=== PATIENT | female | born 1985 | race Caucasian/White ===

== ENCOUNTER 2016-09-21 20:24 | Emergency (ER) | payer OTHER ==
[2016-09-21 20:29] VITALS: RESP 20
[2016-09-21] MEDS ORDERED: ONDANSETRON 4 MG/2 ML VIAL IVP STA (20:58)
[2016-09-21] MEDS: SODIUM CHLORIDE 0.9% 1,000 ML IV STA ×2 (21:17→21:24)
[2016-09-21 21:19] VITALS: PULSE 88
[2016-09-21 21:27] LABS: Basophils % (A) 0 %; CH 25.5; CHCM 31.5; Eosinophils # (A) 0.7 k/uL (0-0.7); Eosinophils % (A) 7 %; HCT 41.1 % (34.0-46.0); HDW 2.47; HGB 12.2 gm/dL (11.4-16.0); Luc # (Auto) 0.11; Luc % (Auto) 1; Lymphocytes # (A) 1.7 k/uL (1.0-4.8); Lymphocytes % (A) 18 %; MCH 24.2 pg (25.0-35.0); MCHC 29.7 g/dL (31.0-37.0); MCV 81.3 fL (80.0-100.0); Mean Platelet Volume 7.1; Monocytes # (A) 0.4 k/uL (0-1.0); Monocytes % (A) 5 %; Neutrophils # (A) 6.5 k/uL (1.3-7.7); Neutrophils % (A) 68 %; RBC 5.05 m/uL (3.80-5.40); RDW 15.9 % (11.5-15.5); WBC 9.5 k/uL (3.8-10.6); WBC (Perox) 9.55
--- NOTE | 2016-09-21 21:30 | ED ---
Nausea/Vomiting/Diarrhea HPI - General Chief complaint: Nausea/Vomiting/Diarrhea Stated complaint: NVD Time Seen by Provider: 09/21/16 20:35 Source: patient, family, RN notes reviewed Mode of arrival: ambulatory Limitations: no limitations - History of Present Illness Initial comments: Patient is 31-year-old female presenting to the emergency department with chief complaint of 4 days of diarrhea and 1 day vomiting, also reports that she's had abdominal pain is gotten increasingly worse. Patient presents that she's felt dizzy and lightheaded due to the amount of vomiting and diarrhea she's had. She states that it radiates on her right upper quadrant. She reports that she' s had multiple episodes of vomiting today. She also reports that she's been having a cough for the past 3-4 weeks and states that the productive with green sputum. She reports that she is a smoker and has not been able to smoke her usual amount due to the cough. She has reports she's felt feverish and chilled. Patient denies any recent nausea vomiting, numbness or tingling, dysuria or hematuria, constipation or , headaches or visual changes, or any other current symptoms. - Related Data Home Medications Medication Instructions Recorded Confirmed Baclofen [Lioresal] 30 mg PO 5XD 02/04/16 09/21/16 DULoxetine HCL [Cymbalta] 30 mg PO HS 02/04/16 09/21/16 Diazepam [Valium] 5 mg PO QAM 02/04/16 09/21/16 DULoxetine HCL [Cymbalta] 60 mg PO QAM 07/17/16 09/21/16 Diazepam [Valium] 2.5 mg PO HS 07/17/16 09/21/16 Ibuprofen [Motrin] 800 mg PO TID PRN 07/17/16 09/21/16 Polyethylene Glycol 3350 [Miralax] 17 gm PO BID 07/17/16 09/21/16 Tamsulosin HCl [Flomax] 0.4 mg PO DAILY 07/17/16 09/21/16 Previous Rx's Medication Instructions Recorded Ciprofloxacin HCl [Cipro] 500 mg PO Q12HR #14 tablet 07/18/16 Ciprofloxacin HCl [Cipro] 500 mg PO Q12HR #9 tablet 09/21/16 Ondansetron [Zofran] 4 mg PO Q8HR PRN #12 tab 09/21/16 methylPREDNISolone [Medrol Dose 4 mg PO DIRECTED #1 pack 09/21/16 Pack] Allergies Allergy/AdvReac Type Severity Reaction Status Date / Time No Known Allergies Allergy Verified 09/21/16 20:29 Review of Systems ROS Statement: Those systems with pertinent positive or pertinent negative responses have been documented in the HPI. ROS Other: All systems not noted in ROS Statement are negative. Past Medical History Additional Past Medical History / Comment(s): scoliosis, back pain. MS History of Any Multi-Drug Resistant Organisms: None Reported Past Surgical History: No Surgical Hx Reported Additional Past Surgical History / Comment(s): Ruptured fallopian tube - repair Past Psychological History: Anxiety, Depression Smoking Status: Current every day smoker Past Alcohol Use History: None Reported Past Drug Use History: None Reported General Exam - General Exam Comments Initial Comments: Patient is a well-appearing 31-year-old female. She does not appear in any acute distress. Limitations: no limitations General appearance: alert, in no apparent distress Head exam: Present: atraumatic, normocephalic, normal inspection Eye exam: Present: normal appearance, PERRL, EOMI. Absent: scleral icterus, conjunctival injection, periorbital swelling ENT exam: Present: normal exam, normal oropharynx, mucous membranes moist Neck exam: Present: normal inspection. Absent: tenderness, meningismus, lymphadenopathy Respiratory exam: Present: normal lung sounds bilaterally, other (Mild bilateral wheezes). Absent: respiratory distress, wheezes, rales, rhonchi, stridor Cardiovascular Exam: Present: regular rate, normal rhythm, normal heart sounds. Absent: systolic murmur, diastolic murmur, rubs, gallop, clicks GI/Abdominal exam: Present: soft, normal bowel sounds. Absent: distended, tenderness, guarding, rebound, rigid Extremities exam: Present: normal inspection, full ROM, normal capillary refill. Absent: tenderness, pedal edema, joint swelling, calf tenderness Back exam: Present: normal inspection Neurological exam: Present: alert, oriented X3, CN II-XII intact Psychiatric exam: Present: normal affect, normal mood Skin exam: Present: warm, dry, intact, normal color. Absent: rash Course Vital Signs 09/21/16 09/21/16 09/21/16 20:27 21:18 23:50 Temperature 99 F 98.1 F 98.2 F Pulse Rate 97 88 88 Respiratory 20 20 20 Rate Blood Pressure 117/68 128/72 O2 Sat by Pulse 99 98 Oximetry - Reevaluation(s) Reevaluation #1: Patient was reevaluated and is resting comfortably in bed. She denies any abdominal pain at this time. Medical Decision Making - Medical Decision Making Patient is a 31-year-old female presenting with chief complaint of 4 days of diarrhea and feeling lightheaded as well as 1 day of vomiting. Patient also reports that she's had a chronic cough for the past 2 weeks. Patient's chest x- ray and KUB x-ray reviewed and show no evidence of any acute process. Patient' s lab work is all reviewed to be normal besides a fecal occult being positive. Patient does have significant watery diarrhea. C. diff was negative. She denies any recent antibiotic use. Given the occult positive and significant diarrhea patient be started on ciprofloxacin for the next 3 days. Patient will also be started on a short course of steroids due to this chronic cough. She is a smoker and states that she has no plans on quitting. Patient also will be discharged with some nausea medication. Patient understands treatment plan and will comply. Return parameters were discussed. I advised patient to remain extremely hydrated. Patient was given a note for work for the next 2 days. - Lab Data Result diagrams: 09/21/16 21:20 09/21/16 21:20 Lab Results 09/21/16 09/21/16 09/21/16 Range/Units 21:20 21:20 21:30 WBC 9.5 (3.8-10.6) k/uL RBC 5.05 (3.80-5.40) m/uL Hgb 12.2 (11.4-16.0) gm/dL Hct 41.1 (34.0-46.0) % MCV 81.3 (80.0-100.0) fL MCH 24.2 L (25.0-35.0) pg MCHC 29.7 L (31.0-37.0) g/dL RDW 15.9 H (11.5-15.5) % Plt Count 433 (150-450) k/uL Neutrophils % 68 % Lymphocytes % 18 % Monocytes % 5 % Eosinophils % 7 % Basophils % 0 % Neutrophils # 6.5 (1.3-7.7) k/uL Lymphocytes # 1.7 (1.0-4.8) k/uL Monocytes # 0.4 (0-1.0) k/uL Eosinophils # 0.7 (0-0.7) k/uL Basophils # 0.0 (0-0.2) k/uL Sodium 143 (137-145) mmol/L Potassium 3.6 (3.5-5.1) mmol/L Chloride 108 H (98-107) mmol/L Carbon Dioxide 24 (22-30) mmol/L Anion Gap 11 mmol/L BUN 9 (7-17) mg/dL Creatinine 0.90 (0.52-1.04) mg/dL Est GFR (MDRD) Af Amer >60 (>60 ml/min/1.73 sqM) Est GFR (MDRD) Non-Af >60 (>60 ml/min/1.73 sqM) Glucose 89 (74-99) mg/dL Calcium 9.1 (8.4-10.2) mg/dL Total Bilirubin 0.5 (0.2-1.3) mg/dL AST 16 (14-36) U/L ALT 27 (9-52) U/L Alkaline Phosphatase 85 (38-126) U/L Total Protein 6.9 (6.3-8.2) g/dL Albumin 4.2 (3.5-5.0) g/dL Amylase <30 L (30-110) U/L Lipase 33 (23-300) U/L Urine Color Urine Appearance (Clear) Urine pH (5.0-8.0) Ur Specific [place] (1.001-1.035) Urine Protein (Negative) Urine Glucose (UA) (Negative) Urine Ketones (Negative) Urine Blood (Negative) Urine Nitrate (Negative) Urine Bilirubin (Negative) Urine Urobilinogen (<2.0) mg/dL Ur Leukocyte Esterase (Negative) Urine RBC (0-5) /hpf Urine WBC (0-5) /hpf Ur Squamous Epith Cells (0-4) /hpf Urine Mucus (None) /hpf Urine HCG, Qual (Not Detectd) Stool Occult Blood Positive H (Negative) C. difficile (EIA) Intrp (Negative) 09/21/16 09/21/16 09/21/16 Range/Units 21:30 22:20 22:20 WBC (3.8-10.6) k/uL RBC (3.80-5.40) m/uL Hgb (11.4-16.0) gm/dL Hct (34.0-46.0) % MCV (80.0-100.0) fL MCH (25.0-35.0) pg MCHC (31.0-37.0) g/dL RDW (11.5-15.5) % Plt Count (150-450) k/uL Neutrophils % % Lymphocytes % % Monocytes % % Eosinophils % % Basophils % % Neutrophils # (1.3-7.7) k/uL Lymphocytes # (1.0-4.8) k/uL Monocytes # (0-1.0) k/uL Eosinophils # (0-0.7) k/uL Basophils # (0-0.2) k/uL Sodium (137-145) mmol/L Potassium (3.5-5.1) mmol/L Chloride (98-107) mmol/L Carbon Dioxide (22-30) mmol/L Anion Gap mmol/L BUN (7-17) mg/dL Creatinine (0.52-1.04) mg/dL Est GFR (MDRD) Af Amer (>60 ml/min/1.73 sqM) Est GFR (MDRD) Non-Af (>60 ml/min/1.73 sqM) Glucose (74-99) mg/dL Calcium (8.4-10.2) mg/dL Total Bilirubin (0.2-1.3) mg/dL AST (14-36) U/L ALT (9-52) U/L Alkaline Phosphatase (38-126) U/L Total Protein (6.3-8.2) g/dL Albumin (3.5-5.0) g/dL Amylase (30-110) U/L Lipase (23-300) U/L Urine Color Light Yellow Urine Appearance Clear (Clear) Urine pH 6.0 (5.0-8.0) Ur Specific [place] 1.002 (1.001-1.035) Urine Protein Negative (Negative) Urine Glucose (UA) Negative (Negative) Urine Ketones Negative (Negative) Urine Blood Moderate H (Negative) Urine Nitrate Negative (Negative) Urine Bilirubin Negative (Negative) Urine Urobilinogen <2.0 (<2.0) mg/dL Ur Leukocyte Esterase Negative (Negative) Urine RBC 33 H (0-5) /hpf Urine WBC 1 (0-5) /hpf Ur Squamous Epith Cells 4 (0-4) /hpf Urine Mucus Rare H (None) /hpf Urine HCG, Qual Not Detected (Not Detectd) Stool Occult Blood (Negative) C. difficile (EIA) Intrp Negative (Negative) - Radiology Data Patient's chest x-ray shows mild atelectasis in the right lung base. There is no focal pneumonias. KUB x-ray shows overall non-instructed bowel gas pattern. Was read by Dr. Scot mccallum. Disposition Clinical Impression: Diarrhea, Nausea & vomiting, Cough Disposition: HOME SELF-CARE Condition: Good Instructions: Acute Nausea and Vomiting (ED), Acute Diarrhea (ED) Additional Instructions: Patient instructed to take nausea medication and complete antibiotic prescription and follow-up with primary care provider within the next 2-3 days if symptoms continue to persist. Return to the [facility] if any alarming signs or symptoms occur. Prescriptions: Ciprofloxacin HCl [Cipro] 500 mg PO Q12HR #9 tablet Ondansetron [Zofran] 4 mg PO Q8HR PRN #12 tab PRN Reason: Nausea And Vomiting methylPREDNISolone [Medrol Dose Pack] 4 mg PO DIRECTED #1 pack Referrals: Heather Oh MD [Primary Care Provider] - 1-2 days Time of Disposition: 23:38
[2016-09-21 21:35] LABS: ALT 27 U/L (9-52); AST 16 U/L (14-36); Alkaline Phosphatase 85 U/L (38-126); Amylase <30 U/L (30-110); Anion Gap 11 mmol/L; Blood Urea Nitrogen 9 mg/dL (7-17); Calcium 9.1 mg/dL (8.4-10.2); Carbon Dioxide 24 mmol/L (22-30); Chloride 108 mmol/L (98-107); Glucose 89 mg/dL (74-99); Non-African American GFR(MDRD) >60 (>60 ml/min/1.73 sqM); Potassium 3.6 mmol/L (3.5-5.1); Sodium 143 mmol/L (137-145); Total Bilirubin 0.5 mg/dL (0.2-1.3); Total Protein 6.9 g/dL (6.3-8.2)
[2016-09-21] MEDS ORDERED: METOCLOPRAMIDE 5 MG/ML 2 ML VIAL IVP STA (21:46)
[2016-09-21] MEDS ORDERED: diphenhydrAMINE 50 MG/ML 1 ML VIAL IVP STA (21:47)
[2016-09-21 22:29] LABS: Appearance,Urine Clear (Clear); Bilirubin,Urine Negative (Negative); Glucose,Urine (UA) Negative (Negative); Ketones,Urine Negative (Negative); Leukocyte Esterase,Urine Negative (Negative); Mucus,Urine Rare /hpf; Nitrite,Urine Negative (Negative); Particle Count 2283; Protein,Urine Negative (Negative); RBC,Urine 33 /hpf (0-5); Specific Gravity,Urine 1.002 (1.001-1.035); Squamous Epithelial Cell,Urine 4 /hpf (0-4); UA Billing (MACRO vs. MICRO) MICRO; Urobilinogen,Urine <2.0 mg/dL (<2.0); WBC,Urine 1 /hpf (0-5)
--- NOTE | 2016-09-21 22:48 | XR ---
EXAMINATION TYPE: XR chest 2V DATE OF EXAM: 09/21/2016 10:41 PM COMPARISON: NONE HISTORY: Nausea vomiting and diarrhea. Weakness blood in the stool fever and cough TECHNIQUE: Frontal and lateral views of the chest are obtained. FINDINGS: Mild atelectatic changes are suggested in the right lung base. There is no focal pneumonia, pleural effusion, or pneumothorax seen. The cardiac silhouette size is within normal limits. The osseous structures are intact. IMPRESSION: 1. Mild atelectasis in the right lung base. 2. No focal pneumonia.
--- NOTE | 2016-09-21 22:50 | XR ---
EXAMINATION TYPE: XR KUB DATE OF EXAM: 09/21/2016 10:42 PM CLINICAL HISTORY: Weakness and blood in the distal TECHNIQUE: 2 frontal upright radiographs of abdomen were obtained. COMPARISON: 07/17/2016 FINDINGS: Scattered gas is seen in non-distended small bowel loops. Gas and fecal material is seen in non-distended colon. There is no visceromegaly, pneumoperitoneum, or abnormal calcification appr eciated. The lung bases are clear and the osseous structures are intact. IMPRESSION: Overall nonobstructive bowel gas pattern. No significant interval change.
[2016-09-21 23:52] VITALS: BP 128/72; TEMP 98.2
== END 2016-09-21 23:50 | disposition home or self-care (01) ==
LOC: EC 20:24
DX: R19.7 Diarrhea, unspecified (principal); R11.2 Nausea with vomiting, unspecified; R10.11 Right upper quadrant pain; R42 Dizziness and giddiness; J98.11 Atelectasis; G35 Multiple sclerosis; F41.9 Anxiety disorder, unspecified; F32.9 Major depressive disorder, single episode, unspecified; F17.200 Nicotine dependence, unspecified, uncomplicated; Z79.1 Long term (current) use of non-steroidal anti-inflammatories (NSAID); Z79.899 Other long term (current) drug therapy
CPT/HCPCS: 99284 ×2; 96374 ×2; 96375 ×4; 36415; 80053; 82150; 83690; 85025; 82272; 81001; 81025; 87045; 89055; 87046; 80299; 71020; 74000; J1200; J2765; J2405; 87324

== ENCOUNTER 2016-10-24 11:57 | Inpatient (IN) | payer OTHER ==
[2016-10-24] MEDS ORDERED: SODIUM CHLORIDE 0.9% 1,000 ML IV STA ×2 (13:45)
[2016-10-24] MEDS ORDERED: RX INFO: IV CONTRAST WAS GIVEN 1 EACH MISC MISCELLANE PRN (13:45)
[2016-10-24] MEDS ORDERED: HYDROmorphone 1 MG/ML 1 ML SYRINGE IVP STA ×2 (13:45→15:16)
[2016-10-24] MEDS ORDERED: PANTOPRAZOLE 40 MG/10 ML VIAL IVP STA (13:45)
[2016-10-24] MEDS ORDERED: ONDANSETRON 4 MG/2 ML VIAL IVP STA (13:45)
--- NOTE | 2016-10-24 13:50 | ED ---
General Adult HPI - General Chief complaint: Abdominal Pain Stated complaint: Vomiting/[place]/Blood in stool Time Seen by Provider: 10/24/16 13:35 Source: patient, RN notes reviewed Mode of arrival: ambulatory Limitations: no limitations - History of Present Illness Initial comments: Patient is a pleasant 31-year-old female presenting to the emergency department complaining of nausea vomiting and diarrhea. Symptoms have been present for 1 month now. Patient has had some episodes of blood with emesis and diarrhea. Patient has at least one episode of each emesis and diarrhea daily, sometimes more. Patient has had more vomiting today. Patient does have abdominal discomfort which radiates from the umbilical region to the left lower abdomen. No history of chronic abdominal problems. Patient did see her primary care physician prior to arrival who recommended she come back to the emergency department. Patient has sweats at night. - Related Data Home Medications Medication Instructions Recorded Confirmed Baclofen [Lioresal] 30 mg PO 5XD 02/04/16 10/24/16 DULoxetine HCL [Cymbalta] 30 mg PO HS 02/04/16 10/24/16 Diazepam [Valium] 5 mg PO QAM 02/04/16 10/24/16 DULoxetine HCL [Cymbalta] 60 mg PO QAM 07/17/16 10/24/16 Diazepam [Valium] 2.5 mg PO HS 07/17/16 10/24/16 Ibuprofen [Motrin] 800 mg PO TID PRN 07/17/16 10/24/16 Previous Rx's Medication Instructions Recorded Ondansetron [Zofran] 4 mg PO Q8HR PRN #12 tab 09/21/16 Allergies Allergy/AdvReac Type Severity Reaction Status Date / Time No Known Allergies Allergy Verified 10/24/16 13:49 Review of Systems ROS Statement: Those systems with pertinent positive or pertinent negative responses have been documented in the HPI. ROS Other: All systems not noted in ROS Statement are negative. Constitutional: Reports: night sweats Eyes: Denies: eye pain ENT: Denies: ear pain Respiratory: Denies: cough, dyspnea Cardiovascular: Denies: chest pain Endocrine: Reports: fatigue Gastrointestinal: Reports: abdominal pain, nausea, vomiting, diarrhea, hematemesis, hematochezia Genitourinary: Denies: dysuria Musculoskeletal: Denies: back pain Skin: Denies: rash Neurological: Denies: headache Past Medical History Additional Past Medical History / Comment(s): scoliosis, back pain. MS History of Any Multi-Drug Resistant Organisms: None Reported Past Surgical History: No Surgical Hx Reported Additional Past Surgical History / Comment(s): Ruptured fallopian tube - repair Past Psychological History: Anxiety, Depression Smoking Status: Current every day smoker Past Alcohol Use History: None Reported Past Drug Use History: None Reported General Exam Limitations: no limitations General appearance: alert, in no apparent distress Head exam: Present: atraumatic Eye exam: Present: normal appearance, PERRL ENT exam: Present: normal oropharynx Neck exam: Present: normal inspection Respiratory exam: Present: normal lung sounds bilaterally Cardiovascular Exam: Present: regular rate, normal rhythm GI/Abdominal exam: Present: soft, tenderness (Mild tenderness right lower quadrant, moderate tenderness left lower quadrant), normal bowel sounds. Absent : distended, guarding, rebound, rigid, pulsatile mass Extremities exam: Present: normal inspection Neurological exam: Present: alert Psychiatric exam: Present: normal affect, normal mood Skin exam: Absent: rash Course Vital Signs 10/24/16 10/24/16 12:31 16:01 Temperature 98.2 F Pulse Rate 94 70 Respiratory 20 18 Rate Blood Pressure 125/73 112/56 O2 Sat by Pulse 99 97 Oximetry Medical Decision Making - Medical Decision Making Patient reevaluated and still complains of discomfort. Dr. Quezada has been paged for admission for Dr. trevino/Brad. - Lab Data Result diagrams: 10/24/16 14:05 10/24/16 14:05 Lab Results 10/24/16 10/24/16 10/24/16 Range/Units 14:05 14:05 14:05 WBC 14.1 H (3.8-10.6) k/uL RBC 5.03 (3.80-5.40) m/uL Hgb 12.8 (11.4-16.0) gm/dL Hct 41.7 (34.0-46.0) % MCV 82.9 (80.0-100.0) fL MCH 25.5 (25.0-35.0) pg MCHC 30.8 L (31.0-37.0) g/dL RDW 15.2 (11.5-15.5) % Plt Count 377 (150-450) k/uL Neutrophils % 81 % Lymphocytes % 13 % Monocytes % 4 % Eosinophils % 1 % Basophils % 0 % Neutrophils # 11.5 H (1.3-7.7) k/uL Lymphocytes # 1.8 (1.0-4.8) k/uL Monocytes # 0.5 (0-1.0) k/uL Eosinophils # 0.1 (0-0.7) k/uL Basophils # 0.0 (0-0.2) k/uL Hypochromasia Slight PT 12.3 H (9.0-12.0) sec INR 1.2 (<1.1) APTT 26.4 (22.0-30.0) sec Sodium 143 (137-145) mmol/L Potassium 4.0 (3.5-5.1) mmol/L Chloride 104 (98-107) mmol/L Carbon Dioxide 17 L (22-30) mmol/L Anion Gap 22 mmol/L BUN 10 (7-17) mg/dL Creatinine 0.91 (0.52-1.04) mg/dL Est GFR (MDRD) Af Amer >60 (>60 ml/min/1.73 sqM) Est GFR (MDRD) Non-Af >60 (>60 ml/min/1.73 sqM) Glucose 66 L (74-99) mg/dL Calcium 9.8 (8.4-10.2) mg/dL Total Bilirubin 1.2 (0.2-1.3) mg/dL AST 17 (14-36) U/L ALT 22 (9-52) U/L Alkaline Phosphatase 75 (38-126) U/L Total Protein 8.0 (6.3-8.2) g/dL Albumin 4.9 (3.5-5.0) g/dL Amylase <30 L (30-110) U/L Lipase 29 (23-300) U/L HCG, Qual Not Detected Urine Color Urine Appearance (Clear) Urine pH (5.0-8.0) Ur Specific [place] (1.001-1.035) Urine Protein (Negative) Urine Glucose (UA) (Negative) Urine Ketones (Negative) Urine Blood (Negative) Urine Nitrate (Negative) Urine Bilirubin (Negative) Urine Urobilinogen (<2.0) mg/dL Ur Leukocyte Esterase (Negative) Urine RBC (0-5) /hpf Urine WBC (0-5) /hpf Ur Squamous Epith Cells (0-4) /hpf Hyaline Casts (0-2) /lpf Urine Mucus (None) /hpf 10/24/16 Range/Units 15:56 WBC (3.8-10.6) k/uL RBC (3.80-5.40) m/uL Hgb (11.4-16.0) gm/dL Hct (34.0-46.0) % MCV (80.0-100.0) fL MCH (25.0-35.0) pg MCHC (31.0-37.0) g/dL RDW (11.5-15.5) % Plt Count (150-450) k/uL Neutrophils % % Lymphocytes % % Monocytes % % Eosinophils % % Basophils % % Neutrophils # (1.3-7.7) k/uL Lymphocytes # (1.0-4.8) k/uL Monocytes # (0-1.0) k/uL Eosinophils # (0-0.7) k/uL Basophils # (0-0.2) k/uL Hypochromasia PT (9.0-12.0) sec INR (<1.1) APTT (22.0-30.0) sec Sodium (137-145) mmol/L Potassium (3.5-5.1) mmol/L Chloride (98-107) mmol/L Carbon Dioxide (22-30) mmol/L Anion Gap mmol/L BUN (7-17) mg/dL Creatinine (0.52-1.04) mg/dL Est GFR (MDRD) Af Amer (>60 ml/min/1.73 sqM) Est GFR (MDRD) Non-Af (>60 ml/min/1.73 sqM) Glucose (74-99) mg/dL Calcium (8.4-10.2) mg/dL Total Bilirubin (0.2-1.3) mg/dL AST (14-36) U/L ALT (9-52) U/L Alkaline Phosphatase (38-126) U/L Total Protein (6.3-8.2) g/dL Albumin (3.5-5.0) g/dL Amylase (30-110) U/L Lipase (23-300) U/L HCG, Qual Urine Color Yellow Urine Appearance Cloudy H (Clear) Urine pH 5.5 (5.0-8.0) Ur Specific [place] 1.028 (1.001-1.035) Urine Protein 1+ H (Negative) Urine Glucose (UA) Negative (Negative) Urine Ketones 4+ H (Negative) Urine Blood Negative (Negative) Urine Nitrate Negative (Negative) Urine Bilirubin Negative (Negative) Urine Urobilinogen 2.0 (<2.0) mg/dL Ur Leukocyte Esterase Negative (Negative) Urine RBC 2 (0-5) /hpf Urine WBC 2 (0-5) /hpf Ur Squamous Epith Cells 25 H (0-4) /hpf Hyaline Casts 5 H (0-2) /lpf Urine Mucus Rare H (None) /hpf - Radiology Data Radiology results: report reviewed (Computed tomography scan abdomen pelvis shows ovarian cyst otherwise no acute process.) Disposition Clinical Impression: GI hemorrhage Disposition: ADMITTED IP TO THIS HOSP
[2016-10-24 14:23] LABS: Basophils % (A) 0 %; CH 25.4; CHCM 30.8; Eosinophils # (A) 0.1 k/uL (0-0.7); Eosinophils % (A) 1 %; HCT 41.7 % (34.0-46.0); HDW 2.24; HGB 12.8 gm/dL (11.4-16.0); Hypochromasia Slight; Luc # (Auto) 0.16; Luc % (Auto) 1; Lymphocytes # (A) 1.8 k/uL (1.0-4.8); Lymphocytes % (A) 13 %; MCH 25.5 pg (25.0-35.0); MCHC 30.8 g/dL (31.0-37.0); MCV 82.9 fL (80.0-100.0); Mean Platelet Volume 7.1; Monocytes # (A) 0.5 k/uL (0-1.0); Monocytes % (A) 4 %; Neutrophils # (A) 11.5 k/uL (1.3-7.7); Neutrophils % (A) 81 %; RBC 5.03 m/uL (3.80-5.40); RDW 15.2 % (11.5-15.5); WBC 14.1 k/uL (3.8-10.6); WBC (Perox) 14.13
[2016-10-24 14:24] LABS: HCG,Qualitative Serum Not Detected
[2016-10-24 14:27] LABS: INR 1.2 (<1.1); Partial Thromboplastin Time 26.4 sec (22.0-30.0); Prothrombin Time 12.3 sec (9.0-12.0)
[2016-10-24 14:33] LABS: ALT 22 U/L (9-52); AST 17 U/L (14-36); Alkaline Phosphatase 75 U/L (38-126); Amylase <30 U/L (30-110); Anion Gap 22 mmol/L; Blood Urea Nitrogen 10 mg/dL (7-17); Calcium 9.8 mg/dL (8.4-10.2); Carbon Dioxide 17 mmol/L (22-30); Chloride 104 mmol/L (98-107); Glucose 66 mg/dL (74-99); Non-African American GFR(MDRD) >60 (>60 ml/min/1.73 sqM); Sodium 143 mmol/L (137-145); Total Bilirubin 1.2 mg/dL (0.2-1.3)
--- NOTE | 2016-10-24 15:45 | CT ---
EXAMINATION TYPE: CT abdomen pelvis w con DATE OF EXAM: 10/24/2016 3:20 PM COMPARISON: 07/17/2016 INDICATION: Generalized pain w/ nausea, vomiting and diarrhea for 1 month with occasional blood in st ool and emesis DLP: 639.7 mGycm, Automated exposure control for dose reduction was used. CONTRAST: 100 mL of Omnipaque 300. Study performed without Oral Contrast TECHNIQUE: Axial images were obtained from above the diaphragm to the pubic rami in the axial plane a t 5 mm thick sections. Reconstructed images are reviewed on the computer in the coronal plane. FINDINGS: Limited CT sections are obtained the lung bases. The lung bases are clear. CT ABDOMEN: Liver: Normal Spleen: Normal Pancreas: Normal Adrenal glands: The adrenal glands are normal. Gallbladder: Normal Kidneys: No masses are evident. No hydronephrosis is present. There is a 0.8 cm superior posterior medial left renal cyst Delayed images were obtained through the kidneys, which remain unremarkable. Aorta: Normal Inferior vena cava: Normal. CT PELVIS: Loops of bowel within the abdomen and pelvis are normal. Appendix: Normal as visualized. Urinary bladder: Normal. Genitourinary structures: There appears to be complex cysts on the bilateral ovaries. Left ovary king ures approximately 3.1 cm. Uterus appears normal. Osseous structures: No suspicious lytic or sclerotic lesions. IMPRESSIONS: 1. There may be some cysts present possibly complex in the ovaries. This could be evaluated with ult rasound. 2. CT abdomen pelvis otherwise appears stable from 07/17/2016
[2016-10-24 16:14] LABS: Appearance,Urine Cloudy (Clear); Bilirubin,Urine Negative (Negative); Glucose,Urine (UA) Negative (Negative); Ketones,Urine 4+ (Negative); Leukocyte Esterase,Urine Negative (Negative); Mucus,Urine Rare /hpf; Nitrite,Urine Negative (Negative); PH, Urine 5.5 (5.0-8.0); Particle Count 9323; Protein,Urine 1+ (Negative); RBC,Urine 2 /hpf (0-5); Specific Gravity,Urine 1.028 (1.001-1.035); Squamous Epithelial Cell,Urine 25 /hpf (0-4); UA Billing (MACRO vs. MICRO) MICRO; WBC,Urine 2 /hpf (0-5)
[2016-10-24] MEDS ORDERED: DICYCLOMINE 10 MG/ML 2 ML AMP IM STA (16:32)
[2016-10-24] MEDS ORDERED: NALOXONE 0.4 MG/ML 1 ML VIAL IV PRN (16:33)
[2016-10-24] MEDS: HYDROmorphone 1 MG/ML 1 ML SYRINGE IV PRN (18:56)
[2016-10-24] MEDS: SODIUM CHLORIDE 0.9% 1,000 ML IV SCH (20:56)
[2016-10-24] MEDS: ONDANSETRON 4 MG/2 ML VIAL IVP PRN (20:57)
[2016-10-24] MEDS ORDERED: TRIMETHOBENZAMIDE 100 MG/ML 2 ML VIAL IM PRN (21:41)
[2016-10-24] MEDS ORDERED: TRIMETHOBENZAMIDE 100 MG/ML 2 ML VIAL IM SCH (22:00)
[2016-10-24] MEDS: BACLOFEN 10 MG TAB PO SCH ×2 (22:12→22:55)
[2016-10-24] MEDS: DIAZEPAM 5 MG TAB PO SCH (22:17)
[2016-10-24] MEDS: DULoxetine HCL 30 MG CAPSULE.DR PO SCH (22:17)
--- NOTE | 2016-10-24 22:24 | US ---
EXAMINATION TYPE: US pelvic complete DATE OF EXAM: 10/24/2016 4:59 PM COMPARISON: Pelvic ultrasound March 10, 2015 CLINICAL HISTORY: pain. TECHNIQUE: Transabdominal (TA) Date of LMP: September, patient cannot recall exact date EXAM MEASUREMENTS: Uterus: 5.4 x 2.8 x 3.2 cm Endometrial Stripe: 0.8 cm Right Ovary: 3.0 x 2.2 x 1.8 cm Left Ovary: 3.7 x 2.6 x 2.8 cm 1. Uterus: wnl 2. Endometrium: wnl 3. Right Ovary: wnl 4. Left Ovary: Follicles noted, largest measuring 1.4 x 1.0 x 1.5 cm Spectral, color and waveform doppler imaging shows good arterial and venous flow within the ovaries ; there is no evidence for ovarian torsion. 5. Bilateral Adnexa: wnl 6. Posterior cul-de-sac: wnl IMPRESSION: NO ACUTE PROCESS OR FOCAL FINDINGS.
[2016-10-24 22:48] VITALS: BMI 31.1
[2016-10-25] MEDS: VANCOMYCIN ORAL SOLUTION 250 MG/5 ML BOTTLE PO SCH ×5 (01:01→23:37)
[2016-10-25] MEDS: BACLOFEN 10 MG TAB PO SCH ×5 (01:01→22:32)
[2016-10-25] MEDS: SODIUM CHLORIDE 0.9% 1,000 ML IV SCH ×3 (02:31→23:45)
[2016-10-25 06:37] LABS: Basophils % (A) 0 %; CH 25.3; CHCM 29.9; Eosinophils # (A) 0.4 k/uL (0-0.7); Eosinophils % (A) 5 %; HCT 35.8 % (34.0-46.0); HDW 2.19; Hypochromasia Marked; Luc % (Auto) 3; Lymphocytes # (A) 2.1 k/uL (1.0-4.8); Lymphocytes % (A) 26 %; MCHC 30.7 g/dL (31.0-37.0); Mean Platelet Volume 7.6; Monocytes # (A) 0.5 k/uL (0-1.0); Monocytes % (A) 7 %; Neutrophils # (A) 4.7 k/uL (1.3-7.7); Neutrophils % (A) 59 %; RBC 4.22 m/uL (3.80-5.40); RDW 15.3 % (11.5-15.5); WBC 7.9 k/uL (3.8-10.6); WBC (Perox) 8.67
[2016-10-25] MEDS: ONDANSETRON 4 MG/2 ML VIAL IVP PRN ×3 (07:43→22:32)
[2016-10-25] MEDS: HYDROmorphone 1 MG/ML 1 ML SYRINGE IV PRN ×4 (07:43→23:36)
--- NOTE | 2016-10-25 09:02 | P.CONS ---
History of Present Illness - Reason for Consult Consult date: 10/25/16 abdominal pain rectal bleeding Requesting physician: Jefry Quezada - History of Present Illness 31-year-old female patient of Dr. Romero with a past medical history multiple sclerosis presently maintained only on baclofen, remote EtOH abuse quit 18 months ago, scoliosis, anxiety, depression, nicotine cigarette dependency, and occasional marijuana. 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 Diarrhea was occurring 4-5 times daily sometimes incontinent at night. These symptoms persisted all last month. She was evaluated in the emergency room in September and told she had "diverticulitis" and placed on Cipro and Flagyl without improvement. Subsequently she had had a tooth extracted and was placed on amoxicillin after completing Cipro Flagyl. Her symptoms of diarrhea persisted with intermittent nausea vomiting sometimes pink tinged emesis. Hemoglobin on admission 12.8 currently 11.0. White count 14.1. Platelet 270. INR 1.2. Current White count 7.9. Bowel movement this morning was brown in nature without blood. Last emesis was yesterday without blood. Clostridium difficile toxin positive. She is presently on oral vancomycin. Afebrile. No history of colonoscopy or Clostridium difficile colitis. No personal or family history of inflammatory bowel disease. CT abdomen and pelvis reported ovarian cysts. Review of Systems Constitutional: Denies fever, chills, sweats, weight gain, or loss. HEENT: Negative for migraines, blurred vision or loss, earaches, drainage, tinnitus, oral mucosal lesions, dysphagia, or odynophagia. CARDIAC: Negative for chest pain, arrhythmias, or palpitation. RESPIRATORY: Negative for shortness of breath, hemoptysis, cough, or sputum production. GI: See HPI for pertinent findings. : Negative for hematuria, urgency, frequency, polyuria, or dysuria. GYNc: Denies possibility of . Negative vaginal discharge. MUSCULOSKELETAL: Multiple sclerosis. Negative for muscle aches, swelling, arthritis, and arthralgias. NEUROLOGIC: Negative for stroke or TIA. ENDOCRINE: Negative for thyroid problems. SKIN: Negative for rash or itching. PSYCHIATRIC: depression and anxiety All systems: negative (See HPI) Past Medical History Additional Past Medical History / Comment(s): scoliosis, back pain. MS, ectopic History of Any Multi-Drug Resistant Organisms: None Reported Past Surgical History: No Surgical Hx Reported Additional Past Surgical History / Comment(s): Ruptured fallopian tube - repair Past Anesthesia/Blood Transfusion Reactions: No Reported Reaction Past Psychological History: Anxiety, Depression Smoking Status: Current every day smoker Past Alcohol Use History: None Reported Past Drug Use History: Marijuana Additional Drug Use History / Comment(s): pt states she uses marijuana occasionally - Past Family History Mother Additional Family Medical History / Comment(s): polyps on lung, collapsed lung Medications and Allergies Home Medications Medication Instructions Recorded Confirmed Type Baclofen [Lioresal] 30 mg PO 5XD 02/04/16 10/24/16 History DULoxetine HCL [Cymbalta] 30 mg PO HS 02/04/16 10/24/16 History Diazepam [Valium] 5 mg PO QAM 02/04/16 10/24/16 History DULoxetine HCL [Cymbalta] 60 mg PO QAM 07/17/16 10/24/16 History Diazepam [Valium] 2.5 mg PO HS 07/17/16 10/24/16 History Ibuprofen [Motrin] 800 mg PO TID PRN 07/17/16 10/24/16 History Allergies Allergy/AdvReac Type Severity Reaction Status Date / Time No Known Allergies Allergy Verified 10/24/16 22:05 Physical Exam Vitals: Vital Signs Temp Pulse Pulse Pulse Resp BP BP 10/25/16 01:07 97.3 F L 63 18 135/84 10/24/16 21:35 95.9 F L 64 20 140/71 10/24/16 18:31 54 L 10/24/16 18:00 97.7 F 54 L 20 119/67 10/24/16 17:20 97.8 F 77 18 93/47 Pulse Ox 10/25/16 01:07 98 10/24/16 21:35 100 10/24/16 18:31 10/24/16 18:00 97 10/24/16 17:20 98 Intake and Output 10/24/16 10/25/16 10/25/16 22:59 06:59 14:59 Output Total 300 Balance -300 Output: Urine 200 Emesis 100 Other: # Voids 1 # Bowel Movements 4 3 Weight 72.3 kg General appearance: The patient is alert, oriented, in no acute distress. HET: Head is normocephalic and atraumatic. Pupils are equal and reactive. Oropharynx is clear without lesions. Neck: Supple without lymphadenopathy. Trachea midline. Heart: S1 S2. Regular rate and rhythm. Lungs: No crackles or wheezes are heard. Abdomen: Soft, very mild generalized mid abdominal tenderness, nondistended with bowel sounds. No peritoneal signs. No palpable organomegaly or masses. Extremities: Normal skin color and turgor. No cyanosis, rash, ulceration, clubbing, or edema. Radial and pedal pulses are 2/4 bilaterally. Neurological: No focal deficits. Strength and sensation are grossly intact. Results CBC & Chem 7: 10/25/16 06:22 10/24/16 14:05 Labs: Abnormal Lab Results - Last 24 Hours (Table) 10/25/16 Range/Units 06:22 Hgb 11.0 L (11.4-16.0) gm/dL MCHC 30.7 L (31.0-37.0) g/dL CT scan - abdomen: report reviewed (Reviewed by Dr. Laguerre) Assessment and Plan (1) Clostridium difficile colitis Narrative/Plan: 31-year-old female with a history of multiple sclerosis presents with 6 week history of intermittent nausea vomiting with pink tinged hematemesis and bowel movements with positive Clostridium difficle toxin assay consistent with acute Clostridium difficile colitis. [place] hematemesis could be related to Monica- You tear secondary to multiple emesis, gastritis or esophagitis. Status: Acute (2) Multiple sclerosis Status: Chronic (3) H/O ETOH abuse Status: Resolved Plan: 1. Low residue diet. Yogurt with meals. 2. Lactobacillus supplement. 3. GI prophylaxis Protonix 40 mg IV daily. 4. Continue with antibiotics presently on oral vancomycin. 5. We'll follow with you. Endoscopy not planned at this time. Advised to return to GI office in 2 weeks after discharge for reevaluation. Thank you for this kind referral and the opportunity to participate in the care of your patient. This consultation was discussed with Dr. Laguerre. The impression and plan of care have been directed as dictated.
[2016-10-25] MEDS: PANTOPRAZOLE 40 MG/10 ML VIAL IV SCH (09:46)
[2016-10-25] MEDS: LACTOBACILLUS ACIDOPH & BULGAR 1 EACH PACKET PO SCH ×2 (09:47→22:33)
[2016-10-25] MEDS: DULoxetine HCL 60 MG CAPSULE.DR PO SCH (09:47)
[2016-10-25] MEDS: DIAZEPAM 5 MG TAB PO SCH ×2 (09:47→22:32)
--- NOTE | 2016-10-25 18:43 | P.HPIM ---
History of Present Illness H&P Date: 10/25/16 31 yr old female with no significant history is admitted to the hospital with complaints of persistent diarrhea for the last 4 weeks that has progressively gotten worse. 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 then pt has a odontogenic infection for which she was given abx. Pt thereafter noted progressive worsening of diarrhea, watery in color, was seen at multiple ER with similar complaints, and discharged home as it was attributed as viral illness. Pt on day of admission has had multiple episodes of vomiting, sometimes bloody. Unable to tolerate diet. Over 10-15 episodes of diarrhea, watery in nature, associated with crampy diffuse abdominal pain. NO fevers, chills, chest pain, ELIDA, urinary symptoms. Review of Systems All systems: negative (noted in HPI) Past Medical History Additional Past Medical History / Comment(s): scoliosis, back pain. MS, ectopic History of Any Multi-Drug Resistant Organisms: None Reported Past Surgical History: No Surgical Hx Reported Additional Past Surgical History / Comment(s): Ruptured fallopian tube - repair Past Anesthesia/Blood Transfusion Reactions: No Reported Reaction Past Psychological History: Anxiety, Depression Smoking Status: Current every day smoker Past Alcohol Use History: None Reported Past Drug Use History: Marijuana Additional Drug Use History / Comment(s): pt states she uses marijuana occasionally - Past Family History Mother Additional Family Medical History / Comment(s): polyps on lung, collapsed lung Medications and Allergies Home Medications Medication Instructions Recorded Confirmed Type Baclofen [Lioresal] 30 mg PO 5XD 02/04/16 10/24/16 History DULoxetine HCL [Cymbalta] 30 mg PO HS 02/04/16 10/24/16 History Diazepam [Valium] 5 mg PO QAM 02/04/16 10/24/16 History DULoxetine HCL [Cymbalta] 60 mg PO QAM 07/17/16 10/24/16 History Diazepam [Valium] 2.5 mg PO HS 07/17/16 10/24/16 History Ibuprofen [Motrin] 800 mg PO TID PRN 07/17/16 10/24/16 History Allergies Allergy/AdvReac Type Severity Reaction Status Date / Time No Known Allergies Allergy Verified 10/24/16 22:05 Physical Exam Vitals: Vital Signs Temp Pulse Pulse Resp BP BP Pulse Ox 10/25/16 15:46 99.1 F 61 20 92/46 97 10/25/16 11:10 97.2 F L 55 L 20 127/70 99 10/25/16 09:00 97.9 F 56 L 20 113/52 98 10/25/16 08:00 56 L 10/25/16 01:07 97.3 F L 63 18 135/84 98 10/24/16 21:35 95.9 F L 64 20 140/71 100 Intake and Output 10/25/16 10/25/16 10/25/16 06:59 14:59 22:59 Other: # Voids 1 # Bowel Movements 3 1 Weight 72.3 kg Patient Weight 10/26/16 06:59 Weight 72.3 kg Gen. appearance alert oriented 3 does not appear to be in any distress Neck is supple no JVD Lungs good air movement no crackles, no wheezing. Heart S1-S2 heard no murmurs Regular rate Abdomen is soft nontender no flank tenderness appreciated Lower extremities no edema Neurologic exam no focal motor or sensory deficits noted cranial nerves II-12 grossly intact Results CBC & Chem 7: 10/25/16 06:22 10/24/16 14:05 Labs: Abnormal Lab Results - Last 24 Hours (Table) 10/25/16 Range/Units 06:22 Hgb 11.0 L (11.4-16.0) gm/dL MCHC 30.7 L (31.0-37.0) g/dL US - abdomen: report reviewed Thrombosis Risk Factor Assmnt - Choose All That Apply Each Factor Represents 1 point: Obesity (BMI >25) Thrombosis Risk Factor Assessment Total Risk Factor Score: 1 Thrombosis Risk Factor Assessment Level: Low Risk Assessment and Plan Plan: 1. Clostridium difficile associated infectious diarrhea, moderate in intensity with bowel movements. 2. Chronic low back pain 3. Hemetemesis, likely due to retching, D/c Monica luna tears 4. Non anion gap metabolic acidosis.. m Plan Continue vancomycin oral Pain control PPI Repeat labs
[2016-10-25] MEDS: DULoxetine HCL 30 MG CAPSULE.DR PO SCH (22:32)
[2016-10-26] MEDS: BACLOFEN 10 MG TAB PO SCH ×5 (04:43→20:43)
[2016-10-26] MEDS: VANCOMYCIN ORAL SOLUTION 250 MG/5 ML BOTTLE PO SCH ×3 (06:26→18:24)
[2016-10-26] MEDS: SODIUM CHLORIDE 0.9% 1,000 ML IV SCH ×2 (07:52→17:28)
[2016-10-26] MEDS: PANTOPRAZOLE 40 MG/10 ML VIAL IV SCH (08:33)
[2016-10-26] MEDS: ONDANSETRON 4 MG/2 ML VIAL IVP PRN ×2 (08:33→19:48)
[2016-10-26] MEDS: DULoxetine HCL 60 MG CAPSULE.DR PO SCH (10:57)
[2016-10-26] MEDS: DIAZEPAM 5 MG TAB PO SCH ×2 (10:57→20:44)
[2016-10-26] MEDS: LACTOBACILLUS ACIDOPH & BULGAR 1 EACH PACKET PO SCH ×2 (10:58→20:43)
[2016-10-26] MEDS: HYDROmorphone 1 MG/ML 1 ML SYRINGE IV PRN ×2 (11:10→20:44)
--- NOTE | 2016-10-26 14:36 | PN ---
DATE OF SERVICE: 10/26/2016 Patient is a 31-year-old pleasant lady admitted to the hospital with severe diarrhea and was subsequently diagnosed with C. difficile colitis. She is on oral vancomycin 250 mg 4 times daily, day #3 and she still has some diarrhea and abdominal pain. She had about 6 loose stools since this morning. She denies any nausea or vomiting. She still complains of abdominal pain, but overall she is feeling somewhat better. On physical examination, she appears comfortable. Vital signs are stable. Blood pressure is 92/46, pulse 61, temperature 99.1. HEENT EXAMINATION: Unremarkable. Conjunctivae are pink. Sclerae anicteric. Oral cavity, no lesions. NECK: No JVD or lymph node enlargement. Chest was clear to auscultation. HEART: Regular rate and rhythm. ABDOMEN: Soft. There was mild tenderness in the left lower quadrant area and suprapubic area. EXTREMITIES: No pedal edema. SKIN: No rashes. NEURO: Alert and oriented x3. No focal deficits. Labs done today, WBC 7.6, hemoglobin 11.9, platelets are normal. IMPRESSION: Acute Clostridium difficile colitis secondary from recent antibiotic use for a tooth infection and recent episode of acute colitis. The patient is presently on oral vancomycin day #3 and her diarrhea is slightly improved, presently on vancomycin 250 mg q.6 hours. RECOMMENDATIONS: 1. Advance diet as tolerated. 2. Continue with oral vancomycin. 3. Will start her on cholestyramine 4 grams twice daily. 4. We will follow her closely during her hospital stay. Thank you for this consultation.
--- NOTE | 2016-10-26 16:56 | P.PN ---
Subjective 31 yr old female with no significant history is admitted to the hospital with complaints of persistent diarrhea for the last 4 weeks that has progressively gotten worse. 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 then pt has a odontogenic infection for which she was given abx. Pt thereafter noted progressive worsening of diarrhea, watery in color, was seen at multiple ER with similar complaints, and discharged home as it was attributed as viral illness. Pt on day of admission has had multiple episodes of vomiting, sometimes bloody. Unable to tolerate diet. Over 10-15 episodes of diarrhea, watery in nature, associated with crampy diffuse abdominal pain. NO fevers, chills, chest pain, ELIDA, urinary symptoms. . 10/26/2016 Patient states her abdominal pain is slightly improved. Was able to sleep overnight did not have any bowel movements. However has been having 4-5 bowel movements today does have associated crampy pain. Denies having any episodes of nausea vomiting was able to tolerate diet complaining of whitish discharge vaginally and irritation Objective - Vital Signs Vital signs: Vital Signs Temp 97.9 F 10/26/16 11:04 Pulse 54 L 10/26/16 11:04 Resp 24 10/26/16 11:04 BP 115/70 10/26/16 11:04 Pulse Ox 98 10/26/16 11:04 Intake & Output 10/25/16 10/26/16 10/26/16 18:59 06:59 18:59 Weight 72.3 kg Other: # Voids 1 3 # Bowel Movements 2 3 - Exam Physical exam Gen. appearance oriented 3 in no distress Neck is supple no JVD Lungs good air entry clear to auscultation no rhonchi or wheezing Heart S1-S2 heard regular rate and rhythm no murmurs appreciated Abdomen is soft nontender no organomegaly bowel sounds are intact Neurologically cranial nerves II-12 grossly intact no focal motor or sensory deficits noted Skin no abnormalities appreciated - Labs CBC & Chem 7: 10/25/16 06:22 10/24/16 14:05 Assessment and Plan Plan: 1. Clostridium difficile associated infectious diarrhea, moderate in intensity with bowel movements. 2. Chronic low back pain 3. Hemetemesis, likely due to retching, D/c Monica luna tears 4. Non anion gap metabolic acidosis.. #5 Tran vaginitis, clinical suspicion m Plan Continue vancomycin oral Pain control 1 dose of oral Diflucan 100 mg We'll likely be discharged in the next 24-48 hours.
[2016-10-26] MEDS ORDERED: FLUCONAZOLE 100 MG TAB PO ONE (17:21)
[2016-10-26] MEDS: DULoxetine HCL 30 MG CAPSULE.DR PO SCH (20:44)
[2016-10-26] MEDS: CHOLESTYRAMINE (WITH SUGAR) 4 GM PACKET PO SCH (21:13)
[2016-10-27] MEDS: BACLOFEN 10 MG TAB PO SCH ×4 (00:40→16:29)
[2016-10-27] MEDS: VANCOMYCIN ORAL SOLUTION 250 MG/5 ML BOTTLE PO SCH ×4 (00:40→17:40)
[2016-10-27 00:45] VITALS: RESP 16
[2016-10-27] MEDS: SODIUM CHLORIDE 0.9% 1,000 ML IV SCH (03:04)
[2016-10-27 07:36] LABS: ALT 21 U/L (9-52); AST 14 U/L (14-36); Alkaline Phosphatase 58 U/L (38-126); Anion Gap 11 mmol/L; Blood Urea Nitrogen <2 mg/dL (7-17); Carbon Dioxide 26 mmol/L (22-30); Chloride 110 mmol/L (98-107); Glucose 93 mg/dL (74-99); Non-African American GFR(MDRD) >60 (>60 ml/min/1.73 sqM); Sodium 147 mmol/L (137-145); Total Bilirubin 0.4 mg/dL (0.2-1.3); Total Protein 6.2 g/dL (6.3-8.2)
[2016-10-27 07:55] LABS: Potassium 3.7 mmol/L (3.5-5.1)
[2016-10-27 08:12] LABS: Basophils % (A) 1 %; CH 25.4; CHCM 30.1; Eosinophils # (A) 0.5 k/uL (0-0.7); Eosinophils % (A) 7 %; HCT 38.1 % (34.0-46.0); HDW 2.29; HGB 11.5 gm/dL (11.4-16.0); Hypochromasia Moderate; Luc # (Auto) 0.18; Luc % (Auto) 3; Lymphocytes # (A) 3.1 k/uL (1.0-4.8); Lymphocytes % (A) 45 %; MCH 25.6 pg (25.0-35.0); MCHC 30.2 g/dL (31.0-37.0); MCV 84.9 fL (80.0-100.0); Mean Platelet Volume 7.7; Monocytes # (A) 0.4 k/uL (0-1.0); Monocytes % (A) 6 %; Neutrophils # (A) 2.7 k/uL (1.3-7.7); Neutrophils % (A) 39 %; RBC 4.49 m/uL (3.80-5.40); RDW 15.7 % (11.5-15.5); WBC 6.9 k/uL (3.8-10.6); WBC (Perox) 7.23
[2016-10-27] MEDS: DIAZEPAM 5 MG TAB PO SCH (08:26)
[2016-10-27] MEDS: LACTOBACILLUS ACIDOPH & BULGAR 1 EACH PACKET PO SCH (08:26)
[2016-10-27] MEDS: PANTOPRAZOLE 40 MG/10 ML VIAL IV SCH (08:26)
[2016-10-27] MEDS: DULoxetine HCL 60 MG CAPSULE.DR PO SCH (08:26)
[2016-10-27] MEDS: HYDROmorphone 1 MG/ML 1 ML SYRINGE IV PRN (11:09)
[2016-10-27 11:40] VITALS: BP 125/69; PULSE 68; TEMP 97.8
--- NOTE | 2016-10-27 11:59 | PN ---
DATE OF SERVICE: 03/26/2017 Patient is a 31-year-old pleasant lady admitted to the hospital with acute onset of diarrhea and subsequently diagnosed with C. difficile colitis. She is presently on vancomycin day #4. Her diarrhea is gradually improving. All through the night she did not have any bowel movements. This morning, she had about 2 bowel movements. She still has some abdominal pain on a low-fat diet, tolerating well. No fever, chills, night sweats. On physical examination, she appears comfortable, in no apparent distress. Vital signs are stable. Blood pressure is 115/70, pulse rate is 54, and temperature 97. HEENT examination unremarkable. Conjunctivae are pink. Sclerae nonicteric. Oral cavity, no lesions. NECK: No JVD or lymph node enlargement. Chest was clear to auscultation. Heart was regular rate and rhythm. Abdomen is soft. Mild tenderness in the epigastric area. Rest of the abdomen was benign. EXTREMITIES: No pedal edema. SKIN: No rashes. NEURO: Alert and oriented x3. No focal deficits. LABS: WBC is 6.9, hemoglobin 11.5, platelets are normal. The rest of the basic metabolic panel is within normal limits. IMPRESSION: Acute Clostridium difficile colitis secondary to recent antibiotic use. On oral vancomycin day #4, gradually improving. RECOMMENDATIONS: 1. Continue with oral vancomycin. 2. Advance diet as tolerated. 3. She was started on oral Questran yesterday, but was not given so far and I suggested to hold the medication for now since the diarrhea is improving. 4. If she continues to do well, she can be discharged home tomorrow with an outpatient follow up in a couple of weeks.
[2016-10-27] MEDS: CHOLESTYRAMINE (WITH SUGAR) 4 GM PACKET PO SCH (12:02)
--- NOTE | 2016-10-27 16:25 | P.DS ---
Providers Date of admission: 10/24/16 16:33 Attending physician: Jefry Quezada MD Primary care physician: [facility] Course: 31 yr old female with no significant history is admitted to the hospital with complaints of persistent diarrhea for the last 4 weeks that has progressively gotten worse. 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 then pt has a odontogenic infection for which she was given abx. Pt thereafter noted progressive worsening of diarrhea, watery in color, was seen at multiple ER with similar complaints, and discharged home as it was attributed as viral illness. Pt on day of admission has had multiple episodes of vomiting, sometimes bloody. Unable to tolerate diet. Over 10-15 episodes of diarrhea, watery in nature, associated with crampy diffuse abdominal pain. NO fevers, chills, chest pain, ELIDA, urinary symptoms. 10/27/2016 on the day of discharge Patient only had 2 bowel movements in the last 24 hours. States her slightly formed. Denies having significant crampy abdominal pain. No fevers chills nausea vomiting is reported. Patient is able to tolerate diet. Gen. appearance alert oriented 3 does not appear to be in any distress Neck is supple no JVD Lungs good air movement no crackles, no wheezing. Heart S1-S2 heard no murmurs Regular rate Abdomen is soft nontender no flank tenderness appreciated Lower extremities no edema Neurologic exam no focal motor or sensory deficits noted cranial nerves II-12 grossly intact 1. Clostridium difficile associated infectious diarrhea, moderate in intensity with bowel movements. 2. Chronic low back pain 3. Hemetemesis, likely due to retching, D/c Monica luna tears 4. Non anion gap metabolic acidosis.. Vancomycin by mouth 250 mg every 6 hours for next 14 days. Questran will also be prescribed. Pain control. Patient will be recommended take PPI for 2 weeks. Follow-up with Dr. Александр LAGUERRE Plan - Discharge Summary New Discharge Prescriptions: Cholestyramine (with Sugar) [Questran Packet] 4 gm PO BID #60 packet HYDROcodone/APAP 7.5-325MG [[place] 7.5-325] 1 tab PO Q6HR PRN #35 tab PRN Reason: Mild Breakthrough Pain Vancomycin Oral Solution 250 mg PO Q6HR 14 Days Discharge Medication List Baclofen [Lioresal] 30 mg PO 5XD 02/04/16 [History] DULoxetine HCL [Cymbalta] 30 mg PO HS 02/04/16 [History] Diazepam [Valium] 5 mg PO QAM 02/04/16 [History] DULoxetine HCL [Cymbalta] 60 mg PO QAM 07/17/16 [History] Diazepam [Valium] 2.5 mg PO HS 07/17/16 [History] Ibuprofen [Motrin] 800 mg PO TID PRN 07/17/16 [History] Ondansetron [Zofran] 4 mg PO Q8HR PRN #12 tab 09/21/16 [Rx] Cholestyramine (with Sugar) [Questran Packet] 4 gm PO BID #60 packet 10/27/16 [ Rx] HYDROcodone/APAP 7.5-325MG [[place] 7.5-325] 1 tab PO Q6HR PRN #35 tab 10/27/16 [ Rx] Vancomycin Oral Solution 250 mg PO Q6HR 14 Days 10/27/16 [Rx] Follow up Appointment(s)/Referral(s): Kristen Laguerre MD [STAFF PHYSICIAN] - 2 Weeks Heather Oh MD [Primary Care Provider] - 1-2 days Discharge Disposition: HOME SELF-CARE
== END 2016-10-27 18:30 | disposition home or self-care (01) | DRG 371 ==
LOC: EC 11:57 → 6PED 16:33
PROVIDERS: ADMIT Internal Medicine; ATTEND Internal Medicine
DX: A04.7 Enterocolitis due to Clostridium difficile (principal); K22.6 Gastro-esophageal laceration-hemorrhage syndrome; E87.2 Acidosis; G35 Multiple sclerosis; M41.9 Scoliosis, unspecified; T36.95XA Adverse effect of unspecified systemic antibiotic, initial encounter; F10.10 Alcohol abuse, uncomplicated; F12.90 Cannabis use, unspecified, uncomplicated; F17.200 Nicotine dependence, unspecified, uncomplicated; F32.9 Major depressive disorder, single episode, unspecified; F41.9 Anxiety disorder, unspecified; G89.29 Other chronic pain; M54.5 Low back pain; Z79.899 Other long term (current) drug therapy
CPT/HCPCS: 36415; 74177; 76856; 80053; 81001; 82150; 83690; 84703; 85025; 85610; 85730; 87493; 93975; 96361; 96372; 96374; 96375; 96376; 99285

== ENCOUNTER 2017-09-23 12:11 | Emergency (ER) | payer OTHER ==
[2017-09-23] MEDS ORDERED: SODIUM CHLORIDE 0.9% 1,000 ML IV STA ×3 (14:14→15:08)
--- NOTE | 2017-09-23 14:45 | ED ---
Abdominal Pain HPI - General Chief Complaint: Abdominal Pain Stated Complaint: Abd Pain, diarrhea, blood in urine Time Seen by Provider: 09/23/17 14:00 Source: patient, RN notes reviewed, old records reviewed Mode of arrival: ambulatory Limitations: no limitations - History of Present Illness Initial Comments: this patient is a 32-year-old female presents today chief complaint of blood in her urine, diarrhea, lower quadrant abdominal pain for the past week. She reports that she went to her primary care doctor and they sent her here for blood in her urine. She reports that she has had no fever or chills. Shortness feels nauseated and has been vomiting everything a morning. She denies any chest pain, shortness breath. - Related Data Home Medications Medication Instructions Recorded Confirmed Ibuprofen [Motrin] 400 mg PO Q6HR PRN 09/23/17 09/23/17 Melatonin 10 mg PO HS PRN 09/23/17 09/23/17 diphenhydrAMINE [Benadryl] 25 mg PO HS PRN 09/23/17 09/23/17 Previous Rx's Medication Instructions Recorded Diphenox-Atrop 2.5-0.025 mg 1 tab PO QID PRN #20 tablet 09/23/17 [Lomotil] Ondansetron Odt [Zofran Odt] 4 mg PO Q8HR PRN #12 tab 09/23/17 Allergies Allergy/AdvReac Type Severity Reaction Status Date / Time No Known Allergies Allergy Verified 09/23/17 14:03 Review of Systems ROS Statement: Those systems with pertinent positive or pertinent negative responses have been documented in the HPI. ROS Other: All systems not noted in ROS Statement are negative. Past Medical History Additional Past Medical History / Comment(s): scoliosis, back pain. MS, ectopic History of Any Multi-Drug Resistant Organisms: None Reported Past Surgical History: No Surgical Hx Reported Additional Past Surgical History / Comment(s): Ruptured fallopian tube - repair Past Anesthesia/Blood Transfusion Reactions: No Reported Reaction Past Psychological History: Anxiety, Depression Smoking Status: Current every day smoker Past Alcohol Use History: None Reported Past Drug Use History: Marijuana - Past Family History Mother Additional Family Medical History / Comment(s): polyps on lung, collapsed lung General Exam - General Exam Comments Initial Comments: this is a 32-year-old female. No acute distress. Limitations: no limitations General appearance: alert, in no apparent distress Head exam: Present: atraumatic, normocephalic, normal inspection Eye exam: Present: normal appearance, PERRL, EOMI. Absent: scleral icterus, conjunctival injection, periorbital swelling ENT exam: Present: normal exam, mucous membranes moist Neck exam: Present: normal inspection. Absent: tenderness, meningismus, lymphadenopathy Respiratory exam: Present: normal lung sounds bilaterally. Absent: respiratory distress, wheezes, rales, rhonchi, stridor Cardiovascular Exam: Present: regular rate, normal rhythm, normal heart sounds. Absent: systolic murmur, diastolic murmur, rubs, gallop, clicks GI/Abdominal exam: Present: soft, tenderness (RLQ tenderness), normal bowel sounds. Absent: distended, guarding, rebound, rigid Extremities exam: Present: normal inspection, full ROM, normal capillary refill. Absent: tenderness, pedal edema, joint swelling, calf tenderness Back exam: Present: normal inspection Neurological exam: Present: alert, oriented X3, CN II-XII intact Psychiatric exam: Present: normal affect, normal mood Skin exam: Present: warm, dry, intact, normal color. Absent: rash Course Vital Signs 09/23/17 09/23/17 09/23/17 12:38 13:42 16:29 Temperature 98.3 F 98.6 F 97.5 F L Pulse Rate 85 80 68 Respiratory 16 20 16 Rate Blood Pressure 122/66 112/55 97/53 O2 Sat by Pulse 98 98 100 Oximetry 09/23/17 16:50 Temperature 97.6 F Pulse Rate 65 Respiratory 18 Rate Blood Pressure 101/58 O2 Sat by Pulse 98 Oximetry Medical Decision Making - Medical Decision Making 32-year-old female presents today chief complaint of one week of lower abdominal pain, vomiting, diarrhea, and was sent here by her primary care provider due to blood in her urine. She reports she was very tender in her abdomen as well. Pain is mainly over the right lower quadrant, she does complain of some pain with some left lower quadrant as well. Patient states that she's had no fever or chills. This patient was given IV fluids are obtained. Patient is a well blood cell count elevated at 17.1 with a left shift. She underwent CT scan.normal appendix, small amount of free fluid adjacent to cecum. Clinical management is recommended if there is suspicion for appendicitis Small amount o free fluid can be physiologic. Bilateral ovarian follicles and possible 2.1 cm left ovarian cyst. Consider mild ileum proximal small bowel loops without evidence of obstruction. Pt case discussed with Dr. Pacheco. Patient abdomen was then soft and non tender. No fever or chills to suspect appendicitis. Discussed fluid could be related to ovarian cyst, and WBC shift with diarrhea and vomitng. Disucssed follow up with PCP and return parameter discussed. - Lab Data Result diagrams: 09/23/17 14:32 09/23/17 14:32 Lab Results 09/23/17 09/23/17 09/23/17 Range/Units 14:32 14:32 14:32 WBC 17.3 H (3.8-10.6) k/uL RBC 4.52 (3.80-5.40) m/uL Hgb 12.4 (11.4-16.0) gm/dL Hct 39.6 (34.0-46.0) % MCV 87.5 (80.0-100.0) fL MCH 27.3 (25.0-35.0) pg MCHC 31.2 (31.0-37.0) g/dL RDW 14.1 (11.5-15.5) % Plt Count 325 (150-450) k/uL Neutrophils % 73 % Lymphocytes % 19 % Monocytes % 5 % Eosinophils % 2 % Basophils % 0 % Neutrophils # 12.7 H (1.3-7.7) k/uL Lymphocytes # 3.2 (1.0-4.8) k/uL Monocytes # 0.8 (0-1.0) k/uL Eosinophils # 0.3 (0-0.7) k/uL Basophils # 0.1 (0-0.2) k/uL Sodium 141 (137-145) mmol/L Potassium 4.3 (3.5-5.1) mmol/L Chloride 106 (98-107) mmol/L Carbon Dioxide 23 (22-30) mmol/L Anion Gap 12 mmol/L BUN 9 (7-17) mg/dL Creatinine 0.74 (0.52-1.04) mg/dL Est GFR (MDRD) Af Amer >60 (>60 ml/min/1.73 sqM) Est GFR (MDRD) Non-Af >60 (>60 ml/min/1.73 sqM) Glucose 77 (74-99) mg/dL Calcium 9.6 (8.4-10.2) mg/dL Total Bilirubin 0.6 (0.2-1.3) mg/dL AST 17 (14-36) U/L ALT 16 (9-52) U/L Alkaline Phosphatase 52 (38-126) U/L Total Protein 7.2 (6.3-8.2) g/dL Albumin 4.5 (3.5-5.0) g/dL Amylase 46 (30-110) U/L Lipase 91 (23-300) U/L Urine Color Urine Appearance (Clear) Urine pH (5.0-8.0) Ur Specific [place] (1.001-1.035) Urine Protein (Negative) Urine Glucose (UA) (Negative) Urine Ketones (Negative) Urine Blood (Negative) Urine Nitrite (Negative) Urine Bilirubin (Negative) Urine Urobilinogen (<2.0) mg/dL Ur Leukocyte Esterase (Negative) Urine WBC (0-5) /hpf Ur Squamous Epith Cells (0-4) /hpf Urine Bacteria (None) /hpf Hyaline Casts (0-2) /lpf Urine Mucus (None) /hpf Urine HCG, Qual Not Detected (Not Detectd) 09/23/17 Range/Units 14:32 WBC (3.8-10.6) k/uL RBC (3.80-5.40) m/uL Hgb (11.4-16.0) gm/dL Hct (34.0-46.0) % MCV (80.0-100.0) fL MCH (25.0-35.0) pg MCHC (31.0-37.0) g/dL RDW (11.5-15.5) % Plt Count (150-450) k/uL Neutrophils % % Lymphocytes % % Monocytes % % Eosinophils % % Basophils % % Neutrophils # (1.3-7.7) k/uL Lymphocytes # (1.0-4.8) k/uL Monocytes # (0-1.0) k/uL Eosinophils # (0-0.7) k/uL Basophils # (0-0.2) k/uL Sodium (137-145) mmol/L Potassium (3.5-5.1) mmol/L Chloride (98-107) mmol/L Carbon Dioxide (22-30) mmol/L Anion Gap mmol/L BUN (7-17) mg/dL Creatinine (0.52-1.04) mg/dL Est GFR (MDRD) Af Amer (>60 ml/min/1.73 sqM) Est GFR (MDRD) Non-Af (>60 ml/min/1.73 sqM) Glucose (74-99) mg/dL Calcium (8.4-10.2) mg/dL Total Bilirubin (0.2-1.3) mg/dL AST (14-36) U/L ALT (9-52) U/L Alkaline Phosphatase (38-126) U/L Total Protein (6.3-8.2) g/dL Albumin (3.5-5.0) g/dL Amylase (30-110) U/L Lipase (23-300) U/L Urine Color Yellow Urine Appearance Cloudy H (Clear) Urine pH 5.5 (5.0-8.0) Ur Specific [place] 1.009 (1.001-1.035) Urine Protein Negative (Negative) Urine Glucose (UA) Negative (Negative) Urine Ketones Negative (Negative) Urine Blood Negative (Negative) Urine Nitrite Negative (Negative) Urine Bilirubin Negative (Negative) Urine Urobilinogen <2.0 (<2.0) mg/dL Ur Leukocyte Esterase Negative (Negative) Urine WBC 1 (0-5) /hpf Ur Squamous Epith Cells 4 (0-4) /hpf Urine Bacteria Rare H (None) /hpf Hyaline Casts 1 (0-2) /lpf Urine Mucus Many H (None) /hpf Urine HCG, Qual (Not Detectd) - Radiology Data Radiology results: report reviewed Normal appendix. Small amount of free fluid adjacent to the cecum. Clinical management is recommended if there is suspicion for appendicitis. Swollen free fluid within the pelvis came be physiologic. Suspected bilateral ovarian follicles a possible 2.17 m left ovarian cyst. Consider mild ileus proximal small bowel loops without any evidence of obstruction. Disposition Clinical Impression: Diarrhea, Abdominal pain Disposition: HOME SELF-CARE Condition: Good Instructions: Abdominal Pain (ED) Additional Instructions: patient is follow-up with her primary care provider. Return to emergency department if any alarming signs or symptoms occur. Rest, increase fluid intake. Prescriptions: Diphenox-Atrop 2.5-0.025 mg [Lomotil] 1 tab PO QID PRN #20 tablet PRN Reason: Diarrhea Ondansetron Odt [Zofran Odt] 4 mg PO Q8HR PRN #12 tab PRN Reason: Nausea Referrals: Heather Oh MD [Primary Care Provider] - 1-2 days Time of Disposition: 16:20
[2017-09-23 14:49] LABS: Basophils # (A) 0.1 k/uL (0-0.2); Basophils % (A) 0 %; Eosinophils # (A) 0.3 k/uL (0-0.7); Eosinophils % (A) 2 %; HCT 39.6 % (34.0-46.0); HGB 12.4 gm/dL (11.4-16.0); Lymphocytes # (A) 3.2 k/uL (1.0-4.8); Lymphocytes % (A) 19 %; MCH 27.3 pg (25.0-35.0); MCHC 31.2 g/dL (31.0-37.0); MCV 87.5 fL (80.0-100.0); Mean Platelet Volume 7.3; Monocytes # (A) 0.8 k/uL (0-1.0); Monocytes % (A) 5 %; Neutrophils # (A) 12.7 k/uL (1.3-7.7); Neutrophils % (A) 73 %; Platelet Count 325 k/uL (150-450); RBC 4.52 m/uL (3.80-5.40); RDW 14.1 % (11.5-15.5); WBC 17.3 k/uL (3.8-10.6)
[2017-09-23 14:52] LABS: Appearance,Urine Cloudy (Clear); Bacteria,Urine Rare /hpf; Bilirubin,Urine Negative (Negative); Blood,Urine Negative (Negative); Color,Urine Yellow; Glucose,Urine (UA) Negative (Negative); Hyaline Casts,Urine 1 /lpf (0-2); Ketones,Urine Negative (Negative); Leukocyte Esterase,Urine Negative (Negative); Mucus,Urine Many /hpf; Nitrite,Urine Negative (Negative); PH, Urine 5.5 (5.0-8.0); Protein,Urine Negative (Negative); Specific Gravity,Urine 1.009 (1.001-1.035); Squamous Epithelial Cell,Urine 4 /hpf (0-4); Urobilinogen,Urine <2.0 mg/dL (<2.0); WBC,Urine 1 /hpf (0-5)
[2017-09-23] MEDS ORDERED: RX INFO: IV CONTRAST WAS GIVEN 1 EACH MISC MISCELLANE PRN (14:54)
[2017-09-23 15:04] LABS: ALT 16 U/L (9-52); AST 17 U/L (14-36); Albumin 4.5 g/dL (3.5-5.0); Alkaline Phosphatase 52 U/L (38-126); Amylase 46 U/L (30-110); Anion Gap 12 mmol/L; Blood Urea Nitrogen 9 mg/dL (7-17); Calcium 9.6 mg/dL (8.4-10.2); Carbon Dioxide 23 mmol/L (22-30); Chloride 106 mmol/L (98-107); Glucose 77 mg/dL (74-99); Lipase 91 U/L (23-300); Potassium 4.3 mmol/L (3.5-5.1); Sodium 141 mmol/L (137-145); Total Bilirubin 0.6 mg/dL (0.2-1.3); Total Protein 7.2 g/dL (6.3-8.2)
[2017-09-23] MEDS ORDERED: ONDANSETRON 4 MG/2 ML VIAL IVP STA (15:08)
[2017-09-23] MEDS ORDERED: HYDROmorphone 1 MG/ML 1 ML SYRINGE IVP STA (15:08)
--- NOTE | 2017-09-23 15:30 | CT ---
EXAMINATION TYPE: CT abdomen pelvis w con DATE OF EXAM: 09/23/2017 COMPARISON: 10/24/2016 INDICATION: Abdominal pain, diarrhea and elevated WBCs. DLP: 379.50 mGycm, Automated exposure control for dose reduction was used. CONTRAST: 100 mL of Omnipaque 300. Study performed without Oral Contrast TECHNIQUE: Axial images were obtained from above the diaphragm to the pubic rami in the axial plane a t 5 mm thick sections. Reconstructed images are reviewed on the computer in the coronal plane. FINDINGS: Limited CT sections are obtained the lung bases. The lung bases are clear. CT ABDOMEN: Liver: Normal Spleen: Normal Pancreas: Normal Adrenal glands: The adrenal glands are normal. Gallbladder: Normal Kidneys: No masses are evident. No hydronephrosis is present. Small cortical renal cysts posterior medial left upper pole Delayed images were obtained through the kidneys, which remain unremarkable. Aorta: Vascular calcification is within the aorta. Inferior vena cava: Normal. CT PELVIS: Bowel pattern appears nonspecific. Some slight prominence of small bowel with fluid may be present in the upper abdomen. Distal small bowel loops are unremarkable however. Colon appears unremarkable. Appendix: Normal as visualized. There is a small amount of free fluid adjacent to the cecum. Clinical management of any suspected appendicitis will be required. Urinary bladder: Normal. Genitourinary structures: Small amount of free fluid is within the cul-de-sac. There may be cysts or follicles on the bilateral ovaries. The largest possible cyst may be on the left ovary estimated at 2 .1 cm. Osseous structures: No suspicious lytic or sclerotic lesions. IMPRESSIONS: 1. Normal appendix. 2. Small amount of free fluid adjacent to the cecum. Clinical management is recommended if there is s uspicion for appendicitis. 3. Small amount of free fluid within the pelvis can be physiologic. 4. Suspected bilateral ovarian follicles and possible 2.1 cm left ovarian cyst. 5. Consider mild ileus proximal small bowel loops without evidence of obstruction.
[2017-09-23 16:51] VITALS: BP 101/58; PULSE 65; RESP 18; TEMP 97.6
== END 2017-09-23 16:51 | disposition home or self-care (01) ==
LOC: EC 12:11
DX: R10.30 Lower abdominal pain, unspecified (principal); R19.7 Diarrhea, unspecified; R11.2 Nausea with vomiting, unspecified; R31.9 Hematuria, unspecified; F17.200 Nicotine dependence, unspecified, uncomplicated
CPT/HCPCS: 36415; 80053; 82150; 83690; 85025; 81001; 81025; 87086; 74177; 99284; 96374; 96375; 96361; J2405; J1170; Q9967

== ENCOUNTER 2018-04-10 15:05 | Emergency (ER) | payer OTHER ==
[2018-04-10 15:22] VITALS: RESP 18
[2018-04-10] MEDS ORDERED: ACETAMINOPHEN TAB 325 MG TAB PO STA (16:28)
[2018-04-10] MEDS ORDERED: ONDANSETRON 4 MG/2 ML VIAL IVP STA (16:28)
--- NOTE | 2018-04-10 16:31 | ED ---
Abdominal Pain HPI - General Chief Complaint: Abdominal Pain Stated Complaint: Abd pain Time Seen by Provider: 04/10/18 16:19 Source: patient Mode of arrival: wheelchair Limitations: no limitations - History of Present Illness Initial Comments: 32-year-old female presenting with lower abdominal pain. Patient states 2 years prior she had an ectopic . He states the tube was repaired but was not removed. Since then she has had intermittent lower abdominal pain that she describes as sharp and stabbing not alleviated by anything in worsening by sexual intercourse. Patient states today while having sex the pain increased. She denies any current vaginal bleeding but stated that her period ended yesterday. Patient also admits to morning headaches with nausea and one episode of vomiting for the past 2 years. Denies any focal weakness or numbness. - Related Data Home Medications Medication Instructions Recorded Confirmed Ibuprofen [Motrin] 400 mg PO Q6HR PRN 09/23/17 04/10/18 ALPRAZolam [Xanax] 0.25 mg PO BID PRN 04/10/18 04/10/18 Allergies Allergy/AdvReac Type Severity Reaction Status Date / Time No Known Allergies Allergy Verified 04/10/18 15:22 Review of Systems ROS Statement: Those systems with pertinent positive or pertinent negative responses have been documented in the HPI. Review of Systems Constitutional: Denies fever, chills Eyes: Denies change in vision, Denies pain Ears, nose, mouth, throat: Denies headaches, Denies sore throat Cardiovascular: Denies chest pain. Denies palpitations Respiratory: Denies shortness of breath, Denies cough Gastrointestinal: Positive abdominal pain. Positive nausea, vomiting, denies diarrhea. Genitourinary: Denies hematuria, Denies infections Musculoskeletal: Denies pain, Denies swelling Integumentary: Denies rash Neurological: Positive headache, denies focal weakness, focal numbness Psychiatric: Denies anxiety, Denies depression Hematologic/Lymphatic: Denies easy bleeding or bruising ROS Other: All systems not noted in ROS Statement are negative. Past Medical History Past Medical History: No Reported History Additional Past Medical History / Comment(s): scoliosis, back pain. MS, ectopic History of Any Multi-Drug Resistant Organisms: None Reported, C-DIFF Date of last positivie culture/infection: 2015 MDRO Source:: stool Past Surgical History: No Surgical Hx Reported Additional Past Surgical History / Comment(s): Ruptured fallopian tube - repair Past Anesthesia/Blood Transfusion Reactions: No Reported Reaction Past Psychological History: Anxiety, Depression Smoking Status: Current every day smoker Past Alcohol Use History: None Reported Past Drug Use History: Marijuana - Past Family History Mother Additional Family Medical History / Comment(s): polyps on lung, collapsed lung General Exam - General Exam Comments Initial Comments: General: Awake, alert, No acute Distress HENT: Normocephalic. Atraumatic Eyes: PERRL. EOMI. No scleral icterus. No injected conjunctiva Neck: Full ROM Chest/Lungs: Clear to auscultation bilaterally. No wheezing, rhonchi, or rales Cardiac: Regular rate, rhythm. No murmurs or rubs Abdomen/GI: [Soft, nondistended. Generalized tenderness to palpation No rebound , guarding, or rigidity. Musculoskeletal: Full ROM Skin: Warm, dry, intact Neurologic: A/Ox3, no weakness, no sensory deficit, no abdnormal gait, no coordination deficit Psych: Anxious Limitations: no limitations Course Vital Signs 04/10/18 04/10/18 15:19 20:08 Temperature 98.1 F 97.9 F Pulse Rate 64 68 Respiratory 18 18 Rate Blood Pressure 116/63 95/57 O2 Sat by Pulse 99 98 Oximetry Medical Decision Making - Medical Decision Making 32-year-old female presenting with abdominal pain. Initial exam the patient is awake, alert, and tearful. VSS. Patient generalized lower abdominal tenderness. Her laboratory workup revealed a leukocytosis with otherwise was negative. Her ultrasound showed no acute process. A CT head was done because the patient is complaining of morning headaches with nausea and vomiting. That was negative for acute process. The patient is going to be sent to CT for imaging of her abdomen and pelvis because of her pain. Patient declined any further testing and stated that she preferred to be discharged home as she's had this pain chronically. She declined a pelvic exam. Discussed the patient the importance of returning to the emergency department if her pain worsens. Discussed the concern for appendicitis. She'll verbalize understanding to change declined any further treatment. Patient understands that she can return to the ER for continuation of her workup at any time. He is instructed for follow-up with primary care physician of her symptoms improved. - Lab Data Result diagrams: 04/10/18 17:09 04/10/18 17:09 Lab Results 04/10/18 04/10/18 04/10/18 Range/Units 17:09 17:09 17:09 WBC 13.6 H (3.8-10.6) k/uL RBC 4.78 (3.80-5.40) m/uL Hgb 13.1 (11.4-16.0) gm/dL Hct 40.8 (34.0-46.0) % MCV 85.5 (80.0-100.0) fL MCH 27.3 (25.0-35.0) pg MCHC 32.0 (31.0-37.0) g/dL RDW 12.8 (11.5-15.5) % Plt Count 357 (150-450) k/uL Neutrophils % 75 % Lymphocytes % 18 % Monocytes % 4 % Eosinophils % 2 % Basophils % 0 % Neutrophils # 10.2 H (1.3-7.7) k/uL Lymphocytes # 2.5 (1.0-4.8) k/uL Monocytes # 0.5 (0-1.0) k/uL Eosinophils # 0.3 (0-0.7) k/uL Basophils # 0.0 (0-0.2) k/uL Sodium 142 (137-145) mmol/L Potassium 3.8 (3.5-5.1) mmol/L Chloride 108 H (98-107) mmol/L Carbon Dioxide 23 (22-30) mmol/L Anion Gap 11 mmol/L BUN 11 (7-17) mg/dL Creatinine 0.80 (0.52-1.04) mg/dL Est GFR (CKD-EPI)AfAm >90 (>60 ml/min/1.73 sqM) Est GFR (CKD-EPI)NonAf >90 (>60 ml/min/1.73 sqM) Glucose 96 (74-99) mg/dL Calcium 9.6 (8.4-10.2) mg/dL Lipase 59 (23-300) U/L Urine Color Urine Appearance (Clear) Urine pH (5.0-8.0) Ur Specific [place] (1.001-1.035) Urine Protein (Negative) Urine Glucose (UA) (Negative) Urine Ketones (Negative) Urine Blood (Negative) Urine Nitrite (Negative) Urine Bilirubin (Negative) Urine Urobilinogen (<2.0) mg/dL Ur Leukocyte Esterase (Negative) Urine HCG, Qual Not Detected (Not Detectd) 04/10/18 Range/Units 17:09 WBC (3.8-10.6) k/uL RBC (3.80-5.40) m/uL Hgb (11.4-16.0) gm/dL Hct (34.0-46.0) % MCV (80.0-100.0) fL MCH (25.0-35.0) pg MCHC (31.0-37.0) g/dL RDW (11.5-15.5) % Plt Count (150-450) k/uL Neutrophils % % Lymphocytes % % Monocytes % % Eosinophils % % Basophils % % Neutrophils # (1.3-7.7) k/uL Lymphocytes # (1.0-4.8) k/uL Monocytes # (0-1.0) k/uL Eosinophils # (0-0.7) k/uL Basophils # (0-0.2) k/uL Sodium (137-145) mmol/L Potassium (3.5-5.1) mmol/L Chloride (98-107) mmol/L Carbon Dioxide (22-30) mmol/L Anion Gap mmol/L BUN (7-17) mg/dL Creatinine (0.52-1.04) mg/dL Est GFR (CKD-EPI)AfAm (>60 ml/min/1.73 sqM) Est GFR (CKD-EPI)NonAf (>60 ml/min/1.73 sqM) Glucose (74-99) mg/dL Calcium (8.4-10.2) mg/dL Lipase (23-300) U/L Urine Color Light Yellow Urine Appearance Clear (Clear) Urine pH 6.0 (5.0-8.0) Ur Specific [place] 1.003 (1.001-1.035) Urine Protein Negative (Negative) Urine Glucose (UA) Negative (Negative) Urine Ketones Trace H (Negative) Urine Blood Negative (Negative) Urine Nitrite Negative (Negative) Urine Bilirubin Negative (Negative) Urine Urobilinogen <2.0 (<2.0) mg/dL Ur Leukocyte Esterase Negative (Negative) Urine HCG, Qual (Not Detectd) Disposition Clinical Impression: Abdominal pain, Emesis, Headache Disposition: HOME SELF-CARE Condition: Good Instructions: Abdominal Pain (ED), General Headache (ED) Additional Instructions: Follow up at [facility] ([facility]) [phone] [place] [address] Appointment necessary. Call at 6 am on Friday, Friday, Friday, 8-11 am Is patient prescribed a controlled substance at d/c from ED?: No Referrals: None,Stated [Primary Care Provider] - 1-2 days Grey Gustafson MD [STAFF PHYSICIAN] - 1-2 days
[2018-04-10 17:18] LABS: Basophils % (A) 0 %; Eosinophils # (A) 0.3 k/uL (0-0.7); Eosinophils % (A) 2 %; HCT 40.8 % (34.0-46.0); HGB 13.1 gm/dL (11.4-16.0); Lymphocytes # (A) 2.5 k/uL (1.0-4.8); Lymphocytes % (A) 18 %; MCH 27.3 pg (25.0-35.0); MCV 85.5 fL (80.0-100.0); Mean Platelet Volume 6.7; Monocytes # (A) 0.5 k/uL (0-1.0); Monocytes % (A) 4 %; Neutrophils # (A) 10.2 k/uL (1.3-7.7); Neutrophils % (A) 75 %; Platelet Count 357 k/uL (150-450); RBC 4.78 m/uL (3.80-5.40); RDW 12.8 % (11.5-15.5); WBC 13.6 k/uL (3.8-10.6)
[2018-04-10 17:19] LABS: Appearance,Urine Clear (Clear); Bilirubin,Urine Negative (Negative); Blood,Urine Negative (Negative); Color,Urine Light Yellow; Glucose,Urine (UA) Negative (Negative); Ketones,Urine Trace (Negative); Leukocyte Esterase,Urine Negative (Negative); Nitrite,Urine Negative (Negative); Protein,Urine Negative (Negative); Specific Gravity,Urine 1.003 (1.001-1.035); Urobilinogen,Urine <2.0 mg/dL (<2.0)
[2018-04-10 17:51] LABS: Anion Gap 11 mmol/L; Blood Urea Nitrogen 11 mg/dL (7-17); Calcium 9.6 mg/dL (8.4-10.2); Carbon Dioxide 23 mmol/L (22-30); Chloride 108 mmol/L (98-107); Glucose 96 mg/dL (74-99); Lipase 59 U/L (23-300); Potassium 3.8 mmol/L (3.5-5.1); Sodium 142 mmol/L (137-145)
--- NOTE | 2018-04-10 18:21 | US ---
EXAMINATION TYPE: Transabdominal DATE OF EXAM: 12/16/17 COMPARISON: NONE CLINICAL HISTORY: Pain. Intermittent pelvic pain and N/V x couple months, 1, ectopic 1 EXAM PERFORMED: Transabdominal (TA) EXAM MEASUREMENTS: GESTATIONAL AGE / DATING Physician Established: Not established yet Dates by LMP: Unsure Dates by First Scan: This is 1st scan Dates by Current Scan for: No IUP seen at this time MATERNAL ANATOMY Uterus: 7.6 x 2.7 x 3.2cm, anteverted Right Ovary: 2.9 x 2.1 x 1.5cm Left Ovary: 2.3 x 1.6 x 2.5cm Post CDS / Adnexa: wnl Presence of free fluid: no Presence of corpus luteal cyst: not seen Presence of subchorionic bleed: no GESTATION / SURVEY IUP: No IUP seen at this time Date of LMP: Patient states her cycles just ended recently, unsure what day it started Beta HcG (if available): Not available at time of exam IMPRESSION: Negative transabdominal pelvic sonogram. No endometrial thickening. No evidence of a gestational sac. Endometrium measures 4 mm.
--- NOTE | 2018-04-10 18:50 | CT ---
EXAMINATION TYPE: CT brain wo con DATE OF EXAM: 04/10/2018 COMPARISON: None HISTORY: papilledema CT DLP: 999 mGycm. Automated Exposure Control for Dose Reduction was Utilized. TECHNIQUE: CT scan of the head is performed without contrast. Ventricles and sulci appear normal. There is no mass effect nor midline shift. There is no sign of in tracranial hemorrhage. The calvarium appears intact. IMPRESSION: Normal head CT scan. No evidence of cerebral edema.
[2018-04-10 20:09] VITALS: BP 95/57; PULSE 68; TEMP 97.9
== END 2018-04-10 20:08 | disposition home or self-care (01) ==
LOC: EC 15:05
DX: R10.84 Generalized abdominal pain (principal); R51 Headache; R11.2 Nausea with vomiting, unspecified; F17.200 Nicotine dependence, unspecified, uncomplicated
CPT/HCPCS: 36415; 80048; 83690; 85025; 81003; 81025; 76801; 70450; 99284; 96374; J2405

== ENCOUNTER → 2018-05-19 | Outpatient (CLI) | payer BC ==
--- NOTE | 2018-05-19 13:48 | XR ---
EXAMINATION TYPE: XR chest 2V DATE OF EXAM: 05/19/2018 COMPARISON: 09/21/2016 INDICATION: Cough TECHNIQUE: Frontal and lateral views of the chest are obtained. FINDINGS: The heart size is normal. The pulmonary vasculature is normal. The lungs are clear. IMPRESSION: 1. No acute pulmonary process.
== END | disposition home or self-care (01) ==
LOC: RADXRMAIN 12:01
PROVIDERS: ATTEND Midwife
DX: R05 Cough (principal)
CPT/HCPCS: 71046

== ENCOUNTER → 2018-10-30 | Outpatient (CLI) | payer BC ==
--- NOTE | 2018-11-05 11:59 | MR ---
EXAMINATION TYPE: MR brain wo/w con DATE OF EXAM: 10/30/2018 COMPARISON: CT brain dated 04/10/2018 and outside MRI dated 11/07/2015 HISTORY: Multiple sclerosis. Follow-up exam. TECHNIQUE: Multiplanar, multisequence images of the brain and brainstem is performed without and with IV contras t, utilizing 5.5 mL intravenous Gadavist . FINDINGS: Diffusion weighted images demonstrate no evidence of a recent infarct or other diffusion ab normality. There is no extra-axial fluid collection. The ventricular system and cisternal spaces are normal in size and appearance. The brain volume is age appropriate. Midline structures demonstrate normal morphology. The craniocervical junction appears within normal limits. The dural venous sinuses appear patent. The visualized sinuses display moderate mucosal thick ening of the left and mild mucosal thickening in the right maxillary sinuses with mild ethmoid mucosa l thickening and cystic appearing structures in the posterior nasopharynx and left fossa of Rosenmull er for which direct visualization is recommended as these were not present on the prior. Small lymph nodes are possible. Orbits are unremarkable. No abnormal intracranial enhancement is appreciated on t sherin's examination. Pituitary enhancement is suboptimally visualized without small [id number] imag es. In comparison to the prior exam of 11/07/2015 there is a stable appearing right frontal deep white mat ter 3 mm T2/FLAIR hyperintense focus and a stable subcortical 4 mm hyperintense focus within the righ t frontal lobe as well as left parietal 3 mm hyperintense focus. Other foci of hyperintensity in the left parietal lobe are some 2 mm but appear new from the prior marked on FLAIR axial fat-sat image 19 (3 in number). No restricted diffusion is seen of any of these foci. No surrounding vasogenic edema. The pituitary gland is enlarged and lobulated in contour. Evaluation for pituitary gland lesion is re commended with MR pituitary with contrast. IMPRESSION: 1. Stability of the previously seen few white matter foci on the exam of 2016 with 3 new punctate lef t hemispheric subcortical foci of nonspecific white matter change in keeping with the patient's provi ded history of multiple sclerosis. No restricted diffusion or enhancement to indicate active demyelin ation at this time. 2. Enlarged and lobulated pituitary gland. Evaluation for pituitary gland mass is recommended with MR pituitary with contrast. 3. New cystic ovoid structures in the posterior nasopharynx and left fossa of [place]. Lymph node s are consideration, however direct visualization is recommended for further evaluation.
== END | disposition home or self-care (01) ==
LOC: RADMRIMAIN 07:37
PROVIDERS: ATTEND Psychiatry & Neurology Neurology
DX: G35 Multiple sclerosis (principal); Q89.2 Congenital malformations of other endocrine glands; R93.0 Abnormal findings on diagnostic imaging of skull and head, not elsewhere classified
CPT/HCPCS: 70553; A9585

== ENCOUNTER 2019-05-07 16:44 | Emergency (ER) | payer BC, OTHER ==
[2019-05-07 16:55] VITALS: RESP 18; TEMP 98.3
[2019-05-07] MEDS ORDERED: SODIUM CHLORIDE 0.9% 500 ML 500 ML IV ONE (17:23)
[2019-05-07 18:16] LABS: Basophils % (A) 0 %; Eosinophils # (A) 0.4 k/uL (0-0.7); Eosinophils % (A) 3 %; HCT 38.8 % (34.0-46.0); HGB 12.1 gm/dL (11.4-16.0); Lymphocytes # (A) 2.7 k/uL (1.0-4.8); Lymphocytes % (A) 22 %; MCH 27.5 pg (25.0-35.0); MCHC 31.1 g/dL (31.0-37.0); MCV 88.2 fL (80.0-100.0); Mean Platelet Volume 6.5; Monocytes # (A) 0.6 k/uL (0-1.0); Monocytes % (A) 5 %; Neutrophils # (A) 8.5 k/uL (1.3-7.7); Neutrophils % (A) 68 %; Platelet Count 383 k/uL (150-450); RBC 4.39 m/uL (3.80-5.40); RDW 13.4 % (11.5-15.5); WBC 12.6 k/uL (3.8-10.6)
[2019-05-07 18:21] LABS: Appearance,Urine Clear (Clear); Bacteria,Urine Rare /hpf; Bilirubin,Urine Negative (Negative); Blood,Urine Large (Negative); Color,Urine Light Yellow; Glucose,Urine (UA) Negative (Negative); Ketones,Urine Negative (Negative); Leukocyte Esterase,Urine Negative (Negative); Mucus,Urine Rare /hpf; Nitrite,Urine Negative (Negative); PH, Urine 5.5 (5.0-8.0); Protein,Urine Negative (Negative); RBC,Urine 35 /hpf (0-5); Specific Gravity,Urine 1.006 (1.001-1.035); Squamous Epithelial Cell,Urine 2 /hpf (0-4); Urobilinogen,Urine <2.0 mg/dL (<2.0); WBC,Urine 2 /hpf (0-5)
[2019-05-07 18:29] LABS: ALT <6 U/L (9-52); AST 18 U/L (14-36); African American GFR (CKD) >90 (>60 ml/min/1.73 sqM); Albumin 4.4 g/dL (3.5-5.0); Alkaline Phosphatase 49 U/L (38-126); Anion Gap 9 mmol/L; Blood Urea Nitrogen 9 mg/dL (7-17); Calcium 9.4 mg/dL (8.4-10.2); Carbon Dioxide 27 mmol/L (22-30); Chloride 104 mmol/L (98-107); Glucose 87 mg/dL (74-99); Non-African American GFR(CKD) >90 (>60 ml/min/1.73 sqM); Potassium 3.8 mmol/L (3.5-5.1); Sodium 140 mmol/L (137-145); Total Bilirubin 0.7 mg/dL (0.2-1.3); Total Protein 7.2 g/dL (6.3-8.2)
--- NOTE | 2019-05-07 19:18 | US ---
EXAMINATION TYPE: Transabdominal DATE OF EXAM: 05/07/2019 7:06 PM COMPARISON: NONE CLINICAL HISTORY: pain. Cramping and bleeding x 2 days, 2, ectopic 1, history left ectopic 20 18 EXAM PERFORMED: Transvaginal (TV) and Transabdominal (TA) EXAM MEASUREMENTS: GESTATIONAL AGE / DATING Physician Established: Not established yet Dates by LMP: ( 2 weeks/2 days) EDC: 01/26/2020 Dates by First Scan: This is 1st scan Dates by Current Scan for: No IUP seen at this time MATERNAL ANATOMY Uterus: 8.2 x 3.1 x 3.8cm, anteverted, endometrium not thickened Right Ovary: 2.8 x 2.1 x 2.1cm Left Ovary: 2.8 x 1.7 x 2.4cm Post CDS / Adnexa: 1.6 x 0.9 x 1.4cm hypoechoic non vascular non peristalsing structure seen within left adnexa, unable to determine if sperate from left ovary Presence of free fluid: yes Presence of corpus luteal cyst: not seen Presence of subchorionic bleed: no GESTATION / SURVEY IUP: No IUP seen at this time Date of LMP: 04/21/2019 Beta HcG (if available): Not available at time of exam No IUP seen at this time, 1.6 x 0.9 x 1.4cm hypoechoic non vascular non peristalsing structure seen within left adnexa, unable to determine if sperate from left ovary, free fluid within posterior cul d e sac IMPRESSION: Uterus is empty. No free fluid. Small oval-shaped hypoechoic area in the left adnexal region of uncer tain significance. Early ectopic cannot be excluded.
--- NOTE | 2019-05-07 19:52 | ED ---
General Adult HPI - General Chief complaint: Urogenital Stated complaint: Vaginal Bleeding (Preg) Time Seen by Provider: 05/07/19 17:23 Source: patient, RN notes reviewed, old records reviewed Mode of arrival: ambulatory Limitations: no limitations - History of Present Illness Initial comments: 34-year-old female patient presents to ED with chief complaint of vaginal bleeding, suprapubic pain. Patient has past medical history significant for her ectopic and ovarian to repair 3 years ago. This was done in [place]. Ectopic was in her left ovarian tube. Patient reports that she had a normal menstrual cycle on 04/21. Patient reports that yesterday she began having vaginal bleeding, suprapubic pain. Patient states that she was seen at [facility] where they did an ultrasound, blood work and told her that she is having a miscarriage. They recommended that she follow up with an asbestos textile supervisor. Patient reports that today she continued to have vaginal bleeding, suprapubic cramping pain. Patient states that she attempted to call the referrals, however one group said that could be expensive without insurance, the other group reportedly she presented to this emergency department. Denies any other complaints at this time. Systemic: Pt denies fatigue, fever/chills, rash. Pt denies weakness, night sweats, weight loss. Neuro: Pt denies headache, visual disturbances, syncope or pre-syncope. HEENT: Pt denies ocular discharge or irritation, otalgia, rhinorrhea, pharyngitis or notable lymphadenopathy. Cardiopulmonary: Pt denies chest pain, SOB, heart palpitations, dyspnea on exertion. Abdominal/GI: Pt denies n/v/d. : Pt denies dysuria, burning w/ urination, frequency/urgency. Denies new onset urinary or bowel incontinence. MSK: Pt denies myalgia, loss of strength or function in extremities. Neuro: Pt denies new onset weakness, paresthesias. - Related Data Home Medications Medication Instructions Recorded Confirmed Ibuprofen [Motrin] 400 mg PO Q6HR PRN 09/23/17 04/10/18 ALPRAZolam [Xanax] 0.25 mg PO BID PRN 04/10/18 04/10/18 Previous Rx's Medication Instructions Recorded Cephalexin [Keflex] 500 mg PO Q12HR 7 Days #14 cap 08/23/19 Allergies Allergy/AdvReac Type Severity Reaction Status Date / Time No Known Allergies Allergy Verified 05/07/19 16:55 Review of Systems ROS Statement: Those systems with pertinent positive or pertinent negative responses have been documented in the HPI. ROS Other: All systems not noted in ROS Statement are negative. Past Medical History Past Medical History: No Reported History Additional Past Medical History / Comment(s): scoliosis, back pain. MS, ectopic History of Any Multi-Drug Resistant Organisms: None Reported, C-DIFF Date of last positivie culture/infection: 2015 MDRO Source:: stool Past Surgical History: No Surgical Hx Reported Additional Past Surgical History / Comment(s): Ruptured fallopian tube - repair Past Anesthesia/Blood Transfusion Reactions: No Reported Reaction Past Psychological History: Anxiety, Depression Smoking Status: Current every day smoker Past Alcohol Use History: None Reported Past Drug Use History: Marijuana - Past Family History Mother Additional Family Medical History / Comment(s): polyps on lung, collapsed lung General Exam - General Exam Comments Initial Comments: Constitutional: NAD, AOX3, Pt has pleasant affect. HEENT: NC/AT, trachea midline, neck supple, no lymphadenopathy. Posterior pharynx non erythematous, without exudates. External ears appear normal, without discharge. Mucous membranes moist. Eyes PERRLA, EOM intact. There is no scleral icterus. No pallor noted. Cardiopulmonary: RRR, no murmurs, rubs or gallops, no JVD noted. Lungs CTAB in anterior and posterior helms. No peripheral edema. Abdominal exam: Abdomen soft and non-distended. Abdomen mildly tender to palpation in suprapubic region. Bowel sounds active in LLQ. No hepato splenomegaly. No ecchymosis Neuro: CN II-XII grossly intact. No nuchal rigidity. No raccon eyes, no almazan sign, no hemotympanum. No cervical spinal tenderness. MSK: No posterior calf tenderness bilaterally, homans sign negative bilaterally. Posterior tibialis and radial pulse +2 bilaterally. Sensation intact in upper and lower extremities. Full active ROM in upper and lower extremities, 5/5 stre gnth. Limitations: no limitations Course Vital Signs 05/07/19 05/07/19 16:52 20:05 Temperature 98.3 F Pulse Rate 62 60 Respiratory 18 18 Rate Blood Pressure 114/74 115/62 O2 Sat by Pulse 100 97 Oximetry Medical Decision Making - Medical Decision Making 34-year-old female patient presents to ED with chief complaint of vaginal bleeding, suprapubic pain. Patient has past medical history significant for her ectopic and ovarian to repair 3 years ago. This was done in [place]. Ectopic was in her left ovarian tube. Patient reports that she had a normal menstrual cycle on 04/21. Patient reports that yesterday she began having vaginal bleeding, suprapubic pain. Patient states that she was seen at [facility] where they did an ultrasound, blood work and told her that she is having a miscarriage. They recommended that she follow up with an asbestos textile supervisor. Patient reports that today she continued to have vaginal bleeding, suprapubic cramping pain. Patient states that she attempted to call the referrals, however one group said that could be expensive without insurance, the other group reportedly she presented to this emergency department. Denies any other complaints at this time.Patient vital signs stable, afebrile. Physical exam displayed mild superpubic tenderness. Laboratory investigations revealed mild leukocytosis of 12, hCG Quant is 92. Yesterday hCG Quant was 64. UA displayed 35 red blood cells. 2 white blood cells. Transvaginal ultrasound displayed empty uterus, small oval-shaped hypoechoic area in the left adnexal region of uncertain significance, early ectopic cannot be excluded. Case was discussed with Dr. Huston who contaced asbestos textile supervisor - Dr. Burns. Dr. Burns reccomendation is for the patient to be discharged with return precuations of worsening bleeding or pain - and will see patient in the office on Friday. This was explianed to patient. Patient was told that she must call the admin secretary that she was seen in the emergency department where the talked to Dr. Burns and she needs to be seen on friday for repeat us and bloodwork. Pt blood type is O+. Patient verbalized understanding. Case discussed with Dr. Huston. - Lab Data Result diagrams: 05/07/19 17:59 05/07/19 17:59 Lab Results 05/07/19 05/07/19 05/07/19 Range/Units 17:59 17:59 17:59 WBC 12.6 H (3.8-10.6) k/uL RBC 4.39 (3.80-5.40) m/uL Hgb 12.1 (11.4-16.0) gm/dL Hct 38.8 (34.0-46.0) % MCV 88.2 (80.0-100.0) fL MCH 27.5 (25.0-35.0) pg MCHC 31.1 (31.0-37.0) g/dL RDW 13.4 (11.5-15.5) % Plt Count 383 (150-450) k/uL Neutrophils % 68 % Lymphocytes % 22 % Monocytes % 5 % Eosinophils % 3 % Basophils % 0 % Neutrophils # 8.5 H (1.3-7.7) k/uL Lymphocytes # 2.7 (1.0-4.8) k/uL Monocytes # 0.6 (0-1.0) k/uL Eosinophils # 0.4 (0-0.7) k/uL Basophils # 0.0 (0-0.2) k/uL Sodium 140 (137-145) mmol/L Potassium 3.8 (3.5-5.1) mmol/L Chloride 104 (98-107) mmol/L Carbon Dioxide 27 (22-30) mmol/L Anion Gap 9 mmol/L BUN 9 (7-17) mg/dL Creatinine 0.80 (0.52-1.04) mg/dL Est GFR (CKD-EPI)AfAm >90 (>60 ml/min/1.73 sqM) Est GFR (CKD-EPI)NonAf >90 (>60 ml/min/1.73 sqM) Glucose 87 (74-99) mg/dL Calcium 9.4 (8.4-10.2) mg/dL Total Bilirubin 0.7 (0.2-1.3) mg/dL AST 18 (14-36) U/L ALT <6 L (9-52) U/L Alkaline Phosphatase 49 (38-126) U/L Total Protein 7.2 (6.3-8.2) g/dL Albumin 4.4 (3.5-5.0) g/dL HCG, Quant mIU/mL Urine Color Urine Appearance (Clear) Urine pH (5.0-8.0) Ur Specific Oscar (1.001-1.035) Urine Protein (Negative) Urine Glucose (UA) (Negative) Urine Ketones (Negative) Urine Blood (Negative) Urine Nitrite (Negative) Urine Bilirubin (Negative) Urine Urobilinogen (<2.0) mg/dL Ur Leukocyte Esterase (Negative) Urine RBC (0-5) /hpf Urine WBC (0-5) /hpf Ur Squamous Epith Cells (0-4) /hpf Urine Bacteria (None) /hpf Urine Mucus (None) /hpf Urine HCG, Qual (Not Detectd) Blood Type O Positive Blood Type Recheck MERGED WITH [facility] ONLY 05/07/19 05/07/19 05/07/19 Range/Units 17:59 17:59 17:59 WBC (3.8-10.6) k/uL RBC (3.80-5.40) m/uL Hgb (11.4-16.0) gm/dL Hct (34.0-46.0) % MCV (80.0-100.0) fL MCH (25.0-35.0) pg MCHC (31.0-37.0) g/dL RDW (11.5-15.5) % Plt Count (150-450) k/uL Neutrophils % % Lymphocytes % % Monocytes % % Eosinophils % % Basophils % % Neutrophils # (1.3-7.7) k/uL Lymphocytes # (1.0-4.8) k/uL Monocytes # (0-1.0) k/uL Eosinophils # (0-0.7) k/uL Basophils # (0-0.2) k/uL Sodium (137-145) mmol/L Potassium (3.5-5.1) mmol/L Chloride (98-107) mmol/L Carbon Dioxide (22-30) mmol/L Anion Gap mmol/L BUN (7-17) mg/dL Creatinine (0.52-1.04) mg/dL Est GFR (CKD-EPI)AfAm (>60 ml/min/1.73 sqM) Est GFR (CKD-EPI)NonAf (>60 ml/min/1.73 sqM) Glucose (74-99) mg/dL Calcium (8.4-10.2) mg/dL Total Bilirubin (0.2-1.3) mg/dL AST (14-36) U/L ALT (9-52) U/L Alkaline Phosphatase (38-126) U/L Total Protein (6.3-8.2) g/dL Albumin (3.5-5.0) g/dL HCG, Quant 92.9 mIU/mL Urine Color Light Yellow Urine Appearance Clear (Clear) Urine pH 5.5 (5.0-8.0) Ur Specific Oscar 1.006 (1.001-1.035) Urine Protein Negative (Negative) Urine Glucose (UA) Negative (Negative) Urine Ketones Negative (Negative) Urine Blood Large H (Negative) Urine Nitrite Negative (Negative) Urine Bilirubin Negative (Negative) Urine Urobilinogen <2.0 (<2.0) mg/dL Ur Leukocyte Esterase Negative (Negative) Urine RBC 35 H (0-5) /hpf Urine WBC 2 (0-5) /hpf Ur Squamous Epith Cells 2 (0-4) /hpf Urine Bacteria Rare H (None) /hpf Urine Mucus Rare H (None) /hpf Urine HCG, Qual Detected (Not Detectd) Blood Type Blood Type Recheck Disposition Clinical Impression: Vaginal bleeding during , Asymptomatic bacteriuria Disposition: HOME SELF-CARE Condition: Stable Instructions (If sedation given, give patient instructions): Threatened Miscarriage (ED) Additional Instructions: Patient to adhere to previously discussed treatment plan and will take medication(s) as directed. Patient to follow up with PCP in 1-2 days. Patient to return to ED if symptoms do not improve. Follow-up with Dr. Burns on friday. Call the office and explain to them that you were seen in the ER and that Dr. Burns was contacted and stated that you need to be seen on Friday for repeat ultrasound and hcg quant. Return immediately to ER if bleeding or pain worsens. Prescriptions: Cephalexin [Keflex] 500 mg PO Q12HR 7 Days #14 cap Is patient prescribed a controlled substance at d/c from ED?: No Referrals: None,Stated [Primary Care Provider] - 1-2 days Be Miguel MD [STAFF PHYSICIAN] - 1-2 days
[2019-05-07 20:06] VITALS: BP 115/62; PULSE 60
== END 2019-05-07 20:36 | disposition home or self-care (01) ==
LOC: EC 16:44
DX: O20.9 Hemorrhage in early pregnancy, unspecified (principal); O99.89 Other specified diseases and conditions complicating pregnancy, childbirth and the puerperium; R82.71 Bacteriuria; O99.119 Other diseases of the blood and blood-forming organs and certain disorders involving the immune mechanism complicating pregnancy, unspecified trimester; D72.829 Elevated white blood cell count, unspecified; O99.330 Smoking (tobacco) complicating pregnancy, unspecified trimester; F17.200 Nicotine dependence, unspecified, uncomplicated; Z98.890 Other specified postprocedural states; Z87.59 Personal history of other complications of pregnancy, childbirth and the puerperium; Z3A.00 Weeks of gestation of pregnancy not specified; Z53.29 Procedure and treatment not carried out because of patient's decision for other reasons
CPT/HCPCS: 36415; 76801; 76817; 80053; 81001; 81025; 84702; 85025; 86900; 86901; 99284

== ENCOUNTER → 2019-05-10 | Outpatient (CLI) | payer SELFPAY | END | disposition home or self-care (01) | LOC: LABWHC1 10:40 | PROVIDERS: ATTEND Obstetrics & Gynecology | DX: O20.0 Threatened abortion (principal) | CPT/HCPCS: 36415; 84702 ==

== ENCOUNTER → 2019-05-12 | Outpatient (CLI) | payer SELFPAY | END | disposition home or self-care (01) | LOC: LABWHC1 07:31 | PROVIDERS: ATTEND Obstetrics & Gynecology | DX: O00.109 Unspecified tubal pregnancy without intrauterine pregnancy (principal) | CPT/HCPCS: 36415; 84702 ==

== ENCOUNTER → 2019-05-14 | Outpatient (CLI) | payer SELFPAY ==
[~2019-05-14] MED LIST: METHOTREXATE SODIUM (PF) 25 MG/ML 2 ML VIAL IM NR
[2019-05-14 13:24] LABS: Basophils % (A) 0 %; Eosinophils # (A) 0.7 k/uL (0-0.7); Eosinophils % (A) 7 %; HCT 40.4 % (34.0-46.0); HGB 12.6 gm/dL (11.4-16.0); Lymphocytes # (A) 3.1 k/uL (1.0-4.8); Lymphocytes % (A) 31 %; MCH 27.9 pg (25.0-35.0); MCV 89.9 fL (80.0-100.0); Mean Platelet Volume 6.5; Monocytes # (A) 0.5 k/uL (0-1.0); Monocytes % (A) 5 %; Neutrophils # (A) 5.6 k/uL (1.3-7.7); Neutrophils % (A) 55 %; Platelet Count 371 k/uL (150-450); RDW 13.5 % (11.5-15.5); WBC 10.2 k/uL (3.8-10.6)
[2019-05-14 13:28] VITALS: BP 107/61; PULSE 56; RESP 18; TEMP 97.8
[2019-05-14 13:42] LABS: AST 15 U/L (14-36); African American GFR (CKD) >90 (>60 ml/min/1.73 sqM); Blood Urea Nitrogen 8 mg/dL (7-17)
[2019-05-14 13:58] LABS: HCG,Quantitative Serum 93.7 mIU/mL
== END ==
LOC: PROCWHC3 12:39
PROVIDERS: ATTEND Obstetrics & Gynecology Obstetrics
DX: O00.109 Unspecified tubal pregnancy without intrauterine pregnancy (principal); Z3A.00 Weeks of gestation of pregnancy not specified
CPT/HCPCS: 82565; 84450; 84520; 85025; 84702; 96402; J9260

== ENCOUNTER 2019-05-17 10:24 | Emergency (ER) | payer SELFPAY ==
[2019-05-17 10:37] VITALS: RESP 18
[2019-05-17] MEDS ORDERED: SODIUM CHLORIDE 0.9% 500 ML 500 ML IV STA (11:33)
[2019-05-17 11:51] LABS: Basophils # (A) 0.1 k/uL (0-0.2); Basophils % (A) 1 %; Eosinophils # (A) 0.7 k/uL (0-0.7); Eosinophils % (A) 9 %; HCT 38.4 % (34.0-46.0); Lymphocytes # (A) 2.6 k/uL (1.0-4.8); Lymphocytes % (A) 35 %; MCH 27.4 pg (25.0-35.0); MCHC 31.4 g/dL (31.0-37.0); MCV 87.4 fL (80.0-100.0); Mean Platelet Volume 6.5; Monocytes # (A) 0.3 k/uL (0-1.0); Monocytes % (A) 5 %; Neutrophils # (A) 3.6 k/uL (1.3-7.7); Neutrophils % (A) 49 %; Platelet Count 344 k/uL (150-450); RBC 4.39 m/uL (3.80-5.40); RDW 13.4 % (11.5-15.5); WBC 7.4 k/uL (3.8-10.6)
[2019-05-17 12:01] LABS: Appearance,Urine Clear (Clear); Bilirubin,Urine Negative (Negative); Blood,Urine Negative (Negative); Color,Urine Light Yellow; Glucose,Urine (UA) Negative (Negative); Ketones,Urine Negative (Negative); Leukocyte Esterase,Urine Negative (Negative); Nitrite,Urine Negative (Negative); PH, Urine 6.5 (5.0-8.0); Protein,Urine Negative (Negative); Specific Gravity,Urine 1.013 (1.001-1.035); Urobilinogen,Urine <2.0 mg/dL (<2.0)
[2019-05-17 12:08] LABS: ALT 9 U/L (9-52); AST 17 U/L (14-36); African American GFR (CKD) >90 (>60 ml/min/1.73 sqM); Albumin 4.1 g/dL (3.5-5.0); Alkaline Phosphatase 48 U/L (38-126); Amylase 58 U/L (30-110); Anion Gap 10 mmol/L; Blood Urea Nitrogen 11 mg/dL (7-17); Calcium 9.4 mg/dL (8.4-10.2); Carbon Dioxide 25 mmol/L (22-30); Chloride 105 mmol/L (98-107); Glucose 80 mg/dL (74-99); Potassium 4.6 mmol/L (3.5-5.1); Sodium 140 mmol/L (137-145); Total Bilirubin 0.6 mg/dL (0.2-1.3); Total Protein 6.9 g/dL (6.3-8.2)
[2019-05-17 12:22] LABS: HCG,Quantitative Serum 76.7 mIU/mL
--- NOTE | 2019-05-17 13:03 | ED ---
General Adult HPI - General Chief complaint: Abdominal Pain Stated complaint: ectopic , abd pain Time Seen by Provider: 05/17/19 11:12 Source: patient, RN notes reviewed Mode of arrival: ambulatory Limitations: no limitations - History of Present Illness Initial comments: Patient is a 34-year-old female who presents to the emergency department for a chief complaint of right lower quadrant pain. This has been ongoing for about 5 days but has been worsening. Patient states that she was diagnosed with an ectopic and given methotrexate 4 days ago. States she is following up with Dr. Snyder for this but Dr. Wayne gave her the medication. She states she has a history of ectopic ruptured in the left fallopian t ube so became concerned when her pain in the right lower quadrant was worsening.Patient has no other complaints at this time including shortness of breath, chest pain, nausea or vomiting, headache, or visual changes. - Related Data Previous Rx's Medication Instructions Recorded Cephalexin [Keflex] 500 mg PO Q12HR 7 Days #14 cap 05/07/19 Allergies Allergy/AdvReac Type Severity Reaction Status Date / Time No Known Allergies Allergy Verified 05/17/19 10:37 Review of Systems ROS Statement: Those systems with pertinent positive or pertinent negative responses have been documented in the HPI. ROS Other: All systems not noted in ROS Statement are negative. Past Medical History Past Medical History: No Reported History Additional Past Medical History / Comment(s): scoliosis, back pain. MS, ectopic History of Any Multi-Drug Resistant Organisms: None Reported, C-DIFF Date of last positivie culture/infection: 2015 MDRO Source:: stool Past Surgical History: No Surgical Hx Reported Additional Past Surgical History / Comment(s): Ruptured fallopian tube - repair Past Anesthesia/Blood Transfusion Reactions: No Reported Reaction Past Psychological History: Anxiety, Depression Smoking Status: Current every day smoker Past Alcohol Use History: None Reported Past Drug Use History: None Reported - Past Family History Mother Additional Family Medical History / Comment(s): polyps on lung, collapsed lung General Exam Limitations: no limitations General appearance: alert, in no apparent distress Head exam: Present: atraumatic, normocephalic, normal inspection Eye exam: Present: normal appearance, PERRL, EOMI. Absent: scleral icterus, conjunctival injection, periorbital swelling ENT exam: Present: normal exam, mucous membranes moist Neck exam: Present: normal inspection, full ROM. Absent: tenderness, meningismus, lymphadenopathy Respiratory exam: Present: normal lung sounds bilaterally. Absent: respiratory distress, wheezes, rales, rhonchi, stridor Cardiovascular Exam: Present: regular rate, normal rhythm, normal heart sounds. Absent: systolic murmur, diastolic murmur, rubs, gallop, clicks GI/Abdominal exam: Present: soft, normal bowel sounds. Absent: distended, tenderness, guarding, rebound, rigid External exam: Present: normal external exam. Absent: erythema, swelling, lesions, lacerations, ecchymosis Speculum exam: Present: normal speculum exam. Absent: erythema, vaginal discharge, cervical discharge, vaginal bleeding, foreign body, tissue, lacera tion By manual exam: Present: adnexal tenderness (R adnexal tenderness). Absent: cervical motion tenderness, adnexal mass, uterine enlargement, uterine tenderness Neurological exam: Present: alert Psychiatric exam: Present: normal affect Course Vital Signs 05/17/19 10:33 Temperature 98.1 F Pulse Rate 74 Respiratory 18 Rate Blood Pressure 115/79 O2 Sat by Pulse 99 Oximetry Medical Decision Making - Medical Decision Making History was obtained from patient. Physical exam was performed which revealed m ild right lower quadrant tenderness and right adnexal tenderness on pelvic. Vitals are stable throughout patient's stay. CBC CMP unremarkable. Hemoglobin is stable. Urine is negative. Trichomonas negative. Gonorrhea and chlamydia pending. Ultrasound was obtained which showed that the small amount of free fluid in the posterior cul-de-sac is less complex than on previous ultrasound from 05/07/2019.Also shows left adnexal extrauterine an extra ovarian structure on the prior ultrasound is not visualized. Abdulkadir spoke with Dr. Wayne about this, recommends outpatient follow-up. Pain is likely from methotrexate of menstruation. Recommended returning if she has any worsening symptoms. - Lab Data Result diagrams: 05/17/19 11:25 05/17/19 11:25 Lab Results 05/17/19 05/17/19 05/17/19 Range/Units 11:25 11:25 11:25 WBC 7.4 (3.8-10.6) k/uL RBC 4.39 (3.80-5.40) m/uL Hgb 12.0 (11.4-16.0) gm/dL Hct 38.4 (34.0-46.0) % MCV 87.4 (80.0-100.0) fL MCH 27.4 (25.0-35.0) pg MCHC 31.4 (31.0-37.0) g/dL RDW 13.4 (11.5-15.5) % Plt Count 344 (150-450) k/uL Neutrophils % 49 % Lymphocytes % 35 % Monocytes % 5 % Eosinophils % 9 % Basophils % 1 % Neutrophils # 3.6 (1.3-7.7) k/uL Lymphocytes # 2.6 (1.0-4.8) k/uL Monocytes # 0.3 (0-1.0) k/uL Eosinophils # 0.7 (0-0.7) k/uL Basophils # 0.1 (0-0.2) k/uL Sodium 140 (137-145) mmol/L Potassium 4.6 (3.5-5.1) mmol/L Chloride 105 (98-107) mmol/L Carbon Dioxide 25 (22-30) mmol/L Anion Gap 10 mmol/L BUN 11 (7-17) mg/dL Creatinine 0.76 (0.52-1.04) mg/dL Est GFR (CKD-EPI)AfAm >90 (>60 ml/min/1.73 sqM) Est GFR (CKD-EPI)NonAf >90 (>60 ml/min/1.73 sqM) Glucose 80 (74-99) mg/dL Calcium 9.4 (8.4-10.2) mg/dL Total Bilirubin 0.6 (0.2-1.3) mg/dL AST 17 (14-36) U/L ALT 9 (9-52) U/L Alkaline Phosphatase 48 (38-126) U/L Total Protein 6.9 (6.3-8.2) g/dL Albumin 4.1 (3.5-5.0) g/dL Amylase 58 (30-110) U/L Lipase 51 (23-300) U/L HCG, Quant 76.7 mIU/mL Urine Color Light Yellow Urine Appearance Clear (Clear) Urine pH 6.5 (5.0-8.0) Ur Specific [place] 1.013 (1.001-1.035) Urine Protein Negative (Negative) Urine Glucose (UA) Negative (Negative) Urine Ketones Negative (Negative) Urine Blood Negative (Negative) Urine Nitrite Negative (Negative) Urine Bilirubin Negative (Negative) Urine Urobilinogen <2.0 (<2.0) mg/dL Ur Leukocyte Esterase Negative (Negative) Urine HCG, Qual (Not Detectd) Trichomonas Ag (Rapid) (Negative) Blood Type Blood Type Recheck Bld Type Recheck Status Antibody Screen Spec Expiration Date 05/17/19 05/17/19 05/17/19 Range/Units 11:25 11:25 13:38 WBC (3.8-10.6) k/uL RBC (3.80-5.40) m/uL Hgb (11.4-16.0) gm/dL Hct (34.0-46.0) % MCV (80.0-100.0) fL MCH (25.0-35.0) pg MCHC (31.0-37.0) g/dL RDW (11.5-15.5) % Plt Count (150-450) k/uL Neutrophils % % Lymphocytes % % Monocytes % % Eosinophils % % Basophils % % Neutrophils # (1.3-7.7) k/uL Lymphocytes # (1.0-4.8) k/uL Monocytes # (0-1.0) k/uL Eosinophils # (0-0.7) k/uL Basophils # (0-0.2) k/uL Sodium (137-145) mmol/L Potassium (3.5-5.1) mmol/L Chloride (98-107) mmol/L Carbon Dioxide (22-30) mmol/L Anion Gap mmol/L BUN (7-17) mg/dL Creatinine (0.52-1.04) mg/dL Est GFR (CKD-EPI)AfAm (>60 ml/min/1.73 sqM) Est GFR (CKD-EPI)NonAf (>60 ml/min/1.73 sqM) Glucose (74-99) mg/dL Calcium (8.4-10.2) mg/dL Total Bilirubin (0.2-1.3) mg/dL AST (14-36) U/L ALT (9-52) U/L Alkaline Phosphatase (38-126) U/L Total Protein (6.3-8.2) g/dL Albumin (3.5-5.0) g/dL Amylase (30-110) U/L Lipase (23-300) U/L HCG, Quant mIU/mL Urine Color Urine Appearance (Clear) Urine pH (5.0-8.0) Ur Specific [place] (1.001-1.035) Urine Protein (Negative) Urine Glucose (UA) (Negative) Urine Ketones (Negative) Urine Blood (Negative) Urine Nitrite (Negative) Urine Bilirubin (Negative) Urine Urobilinogen (<2.0) mg/dL Ur Leukocyte Esterase (Negative) Urine HCG, Qual Not Detected (Not Detectd) Trichomonas Ag (Rapid) Negative (Negative) Blood Type O Positive Blood Type Recheck O Pos Bld Type Recheck Status No Antibody Screen NEGATIVE Spec Expiration Date 05/20/20192324 Disposition Clinical Impression: Abdominal pain Disposition: HOME SELF-CARE Condition: Good Instructions (If sedation given, give patient instructions): Abdominal Pain (ED) Additional Instructions: Please follow-up with your [employer] in 1-2 days. Please return to the emergency department if you have any worsening symptoms. Is patient prescribed a controlled substance at d/c from ED?: No Referrals: Mitzi Wayne DO [Doctor of Osteopathic Medicine] - 1-2 days Time of Disposition: 14:22
--- NOTE | 2019-05-17 13:29 | US ---
EXAMINATION TYPE: US transvaginal DATE OF EXAM: 05/17/2019 COMPARISON: NONE CLINICAL HISTORY: Pain, r/o ruptured ectopic, MTX on 05/14. Hx of ectopic treated with metho trexate on Friday. Patient having pain. TECHNIQUE: Transvaginal (TV). EXAM MEASUREMENTS: Uterus: 7.4 x 2.8 x 4.9 cm Endometrial Stripe: .5 cm Right Ovary: 3.1 x 1.7 x 1.5 cm Left Ovary: 3.0 x 1.9 x 1.5 cm 1. Uterus: Anteverted wnl 2. Endometrium: wnl 3. Right Ovary: wnl 4. Left Ovary: wnl Spectral, color and waveform doppler imaging shows good arterial and venous flow within the ovaries ; there is no evidence for ovarian torsion. 5. Bilateral Adnexa: wnl 6. Posterior cul-de-sac: Small amount of fluid. IMPRESSION: Small amount of free fluid in the posterior cul-de-sac appears less complex than on the p rior of 05/07/2019. The previously seen left adnexal extrauterine and extra ovarian structure on the p rior of 05/07/2019 is not visualized on the submitted images.
[2019-05-17 14:29] VITALS: BP 120/85; PULSE 67; TEMP 98
[2019-05-18 13:35] LABS: C. trachomatis,PCR Negative (Neg,Equiv); Chlamydia trachomatis Source Urine
[2019-05-18 13:37] LABS: N. gonorrhoeae,PCR Negative (Neg,Equiv); Neisseria Source Urine
== END 2019-05-17 14:29 | disposition home or self-care (01) ==
LOC: EC 10:24
DX: R10.31 Right lower quadrant pain (principal); F17.200 Nicotine dependence, unspecified, uncomplicated; Z87.59 Personal history of other complications of pregnancy, childbirth and the puerperium; Z98.890 Other specified postprocedural states
CPT/HCPCS: 36415; 76830; 80053; 81003; 81025; 82150; 83690; 84702; 85025; 86850; 86900; 86901; 87491; 87591; 87808; 99284

== ENCOUNTER → 2019-05-22 | Outpatient (CLI) | payer SELFPAY ==
[2019-05-22 09:55] LABS: HCT 38.9 % (34.0-46.0); HGB 12.2 gm/dL (11.4-16.0); MCH 28.2 pg (25.0-35.0); MCHC 31.3 g/dL (31.0-37.0); MCV 90.1 fL (80.0-100.0); Mean Platelet Volume 6.8; Platelet Count 331 k/uL (150-450); RBC 4.32 m/uL (3.80-5.40); RDW 14.7 % (11.5-15.5)
[2019-05-22 16:14] LABS: African American GFR (CKD) 98.1 (60.0-200.0)
[2019-05-22 16:21] LABS: HCG,Quantitative Serum 40.4 mIU/mL
== END | disposition home or self-care (01) ==
LOC: LABWHC1 09:17
PROVIDERS: ATTEND Obstetrics & Gynecology
DX: O00.109 Unspecified tubal pregnancy without intrauterine pregnancy (principal)
CPT/HCPCS: 36415; 82565; 84450; 84520; 84702; 85027

== ENCOUNTER → 2020-03-22 | Outpatient (CLI) | payer OTHER ==
--- NOTE | 2020-03-22 15:52 | FL ---
Hysterosalpingogram HISTORY: Ectopic , left lower quadrant, R 10.32 Following informed consent, speculum was introduced into the vagina. The cervix was prepped with Beta dine solution. Catheter was introduced and general hand injection of contrast was performed, approxim ately 6 cc [id number]. Irregular appearance to the lower uterine segment may be due to the catheter. There is a mild filling defect seen at the level of the interstitial portion, the right fallopian tub e does not fill with contrast. Left fallopian tube fills promptly. There is spill of the contrast mat erial into the peritoneum. 1 minute 13 seconds fluoroscopy time, 4 images obtained IMPRESSION: Occluded right fallopian tube, patent left fallopian tube.
== END | disposition home or self-care (01) ==
LOC: RADUSWWP 13:31
PROVIDERS: ATTEND Obstetrics & Gynecology
DX: N97.1 Female infertility of tubal origin (principal)
CPT/HCPCS: 58340; 74740; Q9967

== ENCOUNTER → 2020-07-13 | Outpatient (CLI) | payer OTHER ==
--- NOTE | 2020-07-13 16:34 | CT ---
EXAMINATION TYPE: CT sinus wo con DATE OF EXAM: 07/13/2020 COMPARISON: None HISTORY: 35-year-old female Sinus congestion, pain, dizziness, throwing up CT DLP: 622.50 mGycm Automated exposure control for dose reduction was used. TECHNIQUE: Noncontrast axial views of the paranasal sinuses were obtained. Coronal reconstructions pe rformed. FINDINGS: PARANASAL SINUSES: Moderate mucosal thickening left maxillary sinus and mild within the right maxillary sinus. Moderate mucosal thickening throughout the ethmoid air cells and left greater than right sphenoid sin uses. Frothy partial opacification right sphenoid sinus. Frontal sinuses are pneumatized. No air-fluid level. Reactive tyra- osteogenesis is not seen. There is no destruction of the osseous peck of the paranasal sinuses. THE NASAL CAVITY: Mucosal thickening extends to it effaces the bilateral maxillary infundibulum. Rightward nasal septal deviation. The imaged brain and orbits are normal in appearance. Mastoid air cells and middle ear cavities are well pneumatized. Reformatted images confirm above findings. IMPRESSION: 1. Moderate chronic pansinusitis sparing the frontal sinuses. Some frothy partial opacification in th e right sphenoid sinus could reflect an acute viral sinusitis. 2. Rightward nasal septal deviation.
== END | disposition home or self-care (01) ==
LOC: RADCTMAIN 15:32
PROVIDERS: ATTEND Family Medicine
DX: J32.4 Chronic pansinusitis (principal); J34.2 Deviated nasal septum; R09.81 Nasal congestion
CPT/HCPCS: 70486

== ENCOUNTER → 2020-07-27 | Outpatient (CLI) | payer OTHER ==
--- NOTE | 2020-07-27 13:07 | CT ---
EXAMINATION TYPE: CT abdomen pelvis wo con DATE OF EXAM: 07/27/2020 HISTORY: RLQ pain CT DLP: 513 mGycm. Automated Exposure Control for Dose Reduction was Utilized. TECHNIQUE: CT scan of the abdomen and pelvis is performed without oral or IV contrast. COMPARISON: CT September 23, 2017 FINDINGS: Within the limitations of a non-contrast study, the following observations are made. LUNG BASES: No significant abnormality is appreciated. LIVER/GB: No significant abnormality is appreciated. PANCREAS: No significant abnormality is seen. SPLEEN: No significant abnormality is seen. ADRENALS: No significant abnormality is seen. KIDNEYS: No renal stones or hydronephrosis is present bilaterally. BOWEL: Normal-appearing appendix from cecum. No suspicious small or large bowel dilatation GENITAL ORGANS: Anteverted uterus. Ovaries are symmetric and normal in size near axial image 63. Smal [id number] amount of free fluid in pelvic cul-de-sac image 68 is nonspecific. LYMPH NODES: No greater than 1cm abdominal or pelvic lymph nodes are appreciated. OSSEOUS STRUCTURES: Mild to moderate multilevel spurring. Gnlk-sj-jgyugqyp disc space narrowing L5-S1 level. OTHER: No significant additional abnormality is seen. IMPRESSION: No renal stones or hydronephrosis is seen bilaterally. No CT evidence of acute appendicit is. Sbhdf-xx-dihncted amount of free fluid in pelvic cul-de-sac is nonspecific otherwise unremarkable study.
== END | disposition home or self-care (01) ==
LOC: RADCTMAIN 12:33
PROVIDERS: ATTEND Family Medicine
DX: R93.5 Abnormal findings on diagnostic imaging of other abdominal regions, including retroperitoneum (principal)
CPT/HCPCS: 74176

== ENCOUNTER 2020-11-07 15:38 | Observation (INO) | payer OTHER ==
--- NOTE | 2020-11-07 17:31 | ED ---
General Adult HPI - General Chief complaint: Recheck/Abnormal Lab/Rx Stated complaint: Legs numb/bladder pain/fall 2wks ago Time Seen by Provider: 11/07/20 16:57 Source: patient Mode of arrival: ambulatory Limitations: no limitations - History of Present Illness Initial comments: 35-year-old female presents to the emergency department with a chief complaint of back pain. Patient reports about 2 weeks ago she was treated for a kidney infection but cannot recall the exact medication. States around the same time, she fell down the stairs on her buttocks and slid down 7 stairs. She denies any head injury but reports developing a bruise on the right sacral region. Patient reports now the back pain seems to increase in severity. States in the morning she has noted bilateral lower extremity numbness with occasional tingling. States the pain is exacerbated whenever she is laying down and the alleviated in a standing position. Denies saddle anesthesia, urinary retention with overflow incontinence or bowel incontinence. She is denying any abdominal pain chest pain shortness of breath. - Related Data Home Medications Medication Instructions Recorded Confirmed Azelastine HCl 2 spray EA NOSTRIL DAILY 11/07/20 11/07/20 Cranberry Fruit Extract [Cranberry] 500 mg PO DAILY 11/07/20 11/07/20 Ibuprofen [Motrin Ib] 200 mg PO Q8H PRN 11/07/20 11/07/20 Ondansetron [Zofran] 4 mg PO Q6H PRN 11/07/20 11/07/20 Allergies Allergy/AdvReac Type Severity Reaction Status Date / Time No Known Allergies Allergy Verified 11/07/20 18:32 Review of Systems ROS Statement: Those systems with pertinent positive or pertinent negative responses have been documented in the HPI. ROS Other: All systems not noted in ROS Statement are negative. Past Medical History Past Medical History: No Reported History Additional Past Medical History / Comment(s): scoliosis, back pain. MS, ectopic History of Any Multi-Drug Resistant Organisms: None Reported, C-DIFF Date of last positivie culture/infection: 2015 MDRO Source:: stool Past Surgical History: No Surgical Hx Reported Additional Past Surgical History / Comment(s): Ruptured fallopian tube - repair Past Anesthesia/Blood Transfusion Reactions: No Reported Reaction Past Psychological History: Anxiety, Depression Smoking Status: Current every day smoker Past Alcohol Use History: None Reported Past Drug Use History: None Reported - Past Family History Mother Additional Family Medical History / Comment(s): polyps on lung, collapsed lung General Exam Limitations: no limitations General appearance: alert, in no apparent distress Head exam: Present: atraumatic, normocephalic, normal inspection Eye exam: Present: normal appearance, PERRL, EOMI Pupils: Present: normal accommodation ENT exam: Present: normal exam, normal oropharynx, mucous membranes moist, TM's normal bilaterally, normal external ear exam Neck exam: Present: normal inspection, full ROM. Absent: tenderness Respiratory exam: Present: normal lung sounds bilaterally. Absent: respiratory distress Cardiovascular Exam: Present: regular rate, normal rhythm, normal heart sounds GI/Abdominal exam: Present: soft. Absent: distended, tenderness, guarding Extremities exam: Present: normal inspection, full ROM, normal capillary refill. Absent: tenderness, pedal edema Back exam: Present: normal inspection, full ROM, tenderness, paraspinal tenderness (Lumbosacral tenderness), vertebral tenderness (Lumbosacral tenderness). Absent: CVA tenderness (R), CVA tenderness (L), muscle spasm Neurological exam: Present: alert, oriented X3, normal gait, reflexes normal (Normal patellar reflexes) Expanded Sensory exam: Lower Extremity Light Touch: Normal, Lower Extremity Pin Prick: Abnormal Right, Abnormal Left (Medial aspect of bilateral thighs and lower leg) DTR: Patellar (R): 4+, Patellar (L): 4+ Psychiatric exam: Present: normal affect, normal mood Skin exam: Present: warm, dry, intact, normal color Course Vital Signs 11/07/20 11/07/20 15:56 18:46 Temperature 98.3 F 97.6 F Pulse Rate 77 80 Respiratory 16 18 Rate Blood Pressure 119/78 107/60 O2 Sat by Pulse 98 100 Oximetry Medical Decision Making - Medical Decision Making 35-year-old female with no significant past medical history presenting to the emergency department with a chief complaint of low back pain. On physical examination, patient has focal lumbosacral tenderness. +4 bilateral patellar reflexes. Patient seems to have full sensation to touch in bilateral lower extremities, however she does not have sensation to pain in the medial aspect of the thighs and lower legs. I used a 20-gauge needle to elicit pain. Patient also has difficulty and bleeding due to the pain. She denies saddle anesthesia, urinary retention with overflow incontinence or bowel incontinence. Post void residual volume was 64. She is not UA unremarkable. Patient given Toradol for pain. No immediate answer for cauda equina. The symptoms have been persistent for about [address] of the lumbar spine shows no acute findings. She will be admitted for further medical management. Dr. Sanders also examined the patient and is agreement with the treatment plan. Admitting physician is Orthopedics on consult - Lab Data Lab Results 11/07/20 11/07/20 Range/Units 17:28 17:29 Urine Color Light Yellow Urine Appearance Clear (Clear) Urine pH 6.5 (5.0-8.0) Ur Specific [place] 1.005 (1.001-1.035) Urine Protein Negative (Negative) Urine Glucose (UA) Negative (Negative) Urine Ketones Negative (Negative) Urine Blood Negative (Negative) Urine Nitrite Negative (Negative) Urine Bilirubin Negative (Negative) Urine Urobilinogen <2.0 (<2.0) mg/dL Ur Leukocyte Esterase Negative (Negative) Urine HCG, Qual Not Detected (Not Detectd) Disposition Clinical Impression: Low back pain Disposition: HOME SELF-CARE Condition: Stable Is patient prescribed a controlled substance at d/c from ED?: No Referrals: Ranjan Spence MD [Primary Care Provider] - 1-2 days Time of Disposition: 19:13
[2020-11-07 17:36] LABS: Appearance,Urine Clear (Clear); Bilirubin,Urine Negative (Negative); Blood,Urine Negative (Negative); Color,Urine Light Yellow; Glucose,Urine (UA) Negative (Negative); Ketones,Urine Negative (Negative); Leukocyte Esterase,Urine Negative (Negative); Nitrite,Urine Negative (Negative); PH, Urine 6.5 (5.0-8.0); Protein,Urine Negative (Negative); Specific Gravity,Urine 1.005 (1.001-1.035); Urobilinogen,Urine <2.0 mg/dL (<2.0)
--- NOTE | 2020-11-07 18:34 | CT ---
Result: History: Left-sided SI joint pain status post fall 2 weeks ago. Comparison: CT abdomen 07/27/2020. Technique: Noncontrast axial CT images of the lumbar spine was obtained with images provided in bone and soft tissue algorithm. Coronal and sagittal reformats were provided and reviewed. Automated dose reduction technique was used for this exam. Findings: The bone mineralization is age-appropriate. There is no acute fracture of the lumbar spine. The vertebral body height is preserved. There is mild to moderate disc height narrowing at L5-S1 with facet arthropathy. There is suggestion of moderate n arrowing of the right L5-S1 neural foramen. There is degenerative minimal retrolisthesis at L5-S1. Ot herwise the remaining disc heights are preserved. The sacroiliac joints are patent. There is incident al simple appearing 2.8 cm left ovarian cyst. No significant paravertebral soft tissue intrapelvic ab normality. Impression: No acute fracture of the lumbar spine. Mild to moderate L5-S1 spondylosis as described. Degenerative minimal retrolisthesis at L5-S1. Incidental 2.8 cm left ovarian cyst.
[2020-11-07] MEDS ORDERED: NALOXONE 0.4 MG/ML 1 ML VIAL IV PRN (19:02)
[2020-11-07] MEDS ORDERED: HYDROmorphone 0.5 MG/0.5 ML SYRINGE IVP PRN (19:02)
[2020-11-07] MEDS ORDERED: MORPHINE SULFATE 4 MG/ML SYRINGE IV PRN (19:02)
[2020-11-07] MEDS ORDERED: IBUPROFEN 400 MG TAB PO PRN (19:02)
[2020-11-07] MEDS ORDERED: ACETAMINOPHEN TAB 325 MG TAB PO PRN (19:02)
[2020-11-07] MEDS ORDERED: HYDROcodone/APAP 5-325MG 1 EACH TAB PO PRN (19:02)
[2020-11-07] MEDS ORDERED: traMADol 50 MG TAB PO PRN (19:02)
[2020-11-07] MEDS: ONDANSETRON 4 MG/2 ML VIAL IVP PRN (20:29)
[2020-11-07] MEDS: SODIUM CHLORIDE 0.9% 1,000 ML IV SCH (20:29)
[2020-11-07] MEDS: LORazepam 2 MG/ML INJ IV PRN (20:30)
[2020-11-08] MEDS: LORazepam 2 MG/ML INJ IV PRN ×3 (04:00→17:07)
[2020-11-08] MEDS: SODIUM CHLORIDE 0.9% 1,000 ML IV SCH (04:01)
[2020-11-08] MEDS: ONDANSETRON 4 MG/2 ML VIAL IVP PRN ×2 (08:06→20:45)
--- NOTE | 2020-11-08 10:28 | P.CNOR ---
<Raheel Nolan - Last Filed: 11/08/20 10:24> History of Present Illness - [facility] Consult date: 11/08/20 Requesting physician: Santos Peterson Consult reason: low back pain History of present illness: Patient is a pleasant 35-year-old female who is seen and examined at bedside for further evaluation regards to her lumbar spine. She states on 10/24/2020 she was walking outside her house to take her work when she slipped and fell down the steps. At that time she states she had a bruise on her upper buttocks but no other significant symptoms. She thought her symptoms would improve. Over time she did have some paraspinal pain and pain towards the right shoulder which has subsided. Over the past several days her low back pain has been worsening. She says she has some pain that radiated into her left buttock and left hip. She presents the emergency department yesterday for further evaluation. At that time she did have some numbness towards her left medial thigh. She states at the bedside today that the numbness has improved. She states her sensation is the same in the bilateral lower extremities. She also states her low back pain has had some improvement. She states she has noticed over the past week she has difficulty with ambulation early in the morning. She feels her are heavy and won't quite move and she has to lift and out of bed. This does improve throughout the day. She is able to walk without difficulty. She currently denies any specific lower extremity weakness bilaterally. During presentation emergency department she did have CT imaging of the lumbar spine p erformed. She states also due to her numbness at her left medial thigh she was poked with a needle in the emergency department to test her sensation and states she did not have significant pain at that time with the needle poke. She does state again that the numbness has improved. Also prior to her fall she states she had been having some difficulty with urination and which she felt she had to go to the bathroom but had to push hard in order to start urination. She had a patellar health visit with her primary care provider and was started on antibiotics for urinary tract infection. Urinalysis was taken in the emergency Department which did not show any sign of urinary tract infection. She states her urination has stayed consistently the same and again states the changes have been present prior to her fall. She does have other medical diagnoses and states she was previously diagnosed with multiple sclerosis. She states she was undergoing injections for multiple sclerosis but states they later decided she may not have multiple sclerosis and the injections were stopped. She is not currently following with neurology. She also states she vomits in the morning daily over the past 4 years. She previously worked through further evaluation with a GI specialist without significant findings. She is scheduled to undergo lumbar MRI imaging today at approximate 4:30 PM. Past Medical History Past Medical History: No Reported History Additional Past Medical History / Comment(s): scoliosis, back pain. MS, ectopic x 2 History of Any Multi-Drug Resistant Organisms: None Reported, C-DIFF Year Discovered:: 2015 MDRO Source:: stool Past Surgical History: No Surgical Hx Reported Additional Past Surgical History / Comment(s): Ruptured fallopian tube - repair Past Anesthesia/Blood Transfusion Reactions: No Reported Reaction Past Psychological History: Anxiety, Depression Smoking Status: Current every day smoker Past Alcohol Use History: None Reported Past Drug Use History: None Reported Additional Drug Use History / Comment(s): pt states she uses marijuana occasionally - Past Family History Mother Additional Family Medical History / Comment(s): polyps on lung, collapsed lung Medications and Allergies Home Medications Medication Instructions Recorded Confirmed Type Azelastine HCl 2 spray EA NOSTRIL DAILY 11/07/20 11/07/20 History Cranberry Fruit Extract [Cranberry] 500 mg PO DAILY 11/07/20 11/07/20 History Ibuprofen [Motrin Ib] 200 mg PO Q8H PRN 11/07/20 11/07/20 History Ondansetron [Zofran] 4 mg PO Q6H PRN 11/07/20 11/07/20 History Allergies Allergy/AdvReac Type Severity Reaction Status Date / Time No Known Allergies Allergy Verified 11/07/20 18:32 Physical Examination Physical exam: Patient is awake, alert, and oriented 3 Vital signs stable Good chest excursion with deep inspiration and expiration Abdomen soft nontender Examination of lumbar spine reveals skin is intact with no abrasions, lacerations, or bruises; no erythema, purulence or signs of infection Dorsiflexion, plantarflexion, and extensor hallucis longus positive sustained bilaterally Lower extremity strength 5/5 bilaterally Patient is able to lift legs off the bed independently Patellar reflex 3+ bilaterally and Achilles reflexes 2+ bilaterally No lower extremity hyperreflexia bilaterally Straight leg test negative bilateral lower extremities Some increased low back pain with Lasegue's test bilaterally No signs or symptoms of DVT; no calf pain No pain with internal and external rotation of the hips bilaterally Neurovascularly intact Patient has equal sensation with palpation over the bilateral thighs and calves Results Pertinent studies: CT of the lumbar spine taken on 11/07/2020: Overall alignment appears to be adequately maintained; no acute fracture within the lumbar spine; L5-S1 mild degenerative disc disease with facet arthropathy with slight retrolisthesis; simple appearing 2.8 cm left ovarian cyst Assessment and Plan Assessment: Assessment: Acute to subacute low back pain Status post fall on buttocks on 10/24/2020 L5-S1 degenerative disc disease Lumbosacral facet arthropathy L5-S1 slight retrolisthesis Pain to the left buttock and hip improved Left medial thigh numbness improved Recently treated for urinary tract infection with antibiotics with no evidence of acute urinary tract infection History of previous treatment for multiple sclerosis History of daily vomiting for 4 years Left ovarian cyst (1) Facet arthritis, degenerative, L5-S1 level, lumbosacral spine Current Visit: Yes Status: Acute Code(s): M47.817 - SPONDYLS W/O MYELOPATHY OR RADICULOPATHY, LUMBOSACR REGION SNOMED Code(s): 924985074 (2) Disc disease, degenerative, lumbar or lumbosacral Current Visit: Yes Status: Acute Code(s): M51.37 - OTHER INTERVERTEBRAL DISC DEGENERATION, LUMBOSACRAL REGION SNOMED Code(s): 48450545 (3) Spondylolisthesis, lumbosacral region Current Visit: Yes Status: Acute Code(s): M43.17 - SPONDYLOLISTHESIS, LUMBOSACRAL REGION SNOMED Code(s): 208863165 (4) Radiculopathy Current Visit: Yes Status: Acute Code(s): M54.10 - RADICULOPATHY, SITE UNSPECIFIED SNOMED Code(s): 26401075 (5) Numbness Current Visit: Yes Status: Acute Code(s): R20.0 - ANESTHESIA OF SKIN SNOMED Code(s): 52371859 (6) History of multiple sclerosis Current Visit: Yes Status: Acute Code(s): G35 - MULTIPLE SCLEROSIS SNOMED Code(s): 359408588 (7) Recent urinary tract infection Current Visit: Yes Status: Acute Code(s): Z87.440 - PERSONAL HISTORY OF UR INARY (TRACT) INFECTIONS SNOMED Code(s): 3024497740147 (8) Ovarian cyst Current Visit: Yes Status: Acute Code(s): N83.209 - UNSPECIFIED OVARIAN CYST, UNSPECIFIED SIDE SNOMED Code(s): 12901971 (9) Status post fall Current Visit: Yes Status: Acute Code(s): Z91.81 - HISTORY OF FALLING SNOMED Code(s): 649993898 (10) Low back pain Current Visit: Yes Status: Acute Code(s): M54.5 - LOW BACK PAIN SNOMED Code(s): 060983395 Plan: Plan: 1. Patient has been discussed in detail with Dr. Raffi Dockery and imaging has been reviewed together. Patient did previously sustained a fall on 10/24/2020 with pain in her buttocks with bruising. This has improved. She states she has noticed more increased pain over the last few days with some difficulty using her legs early in the morning over the past week. She states her symptoms do improve throughout the day she is able to ambulate throughout the day. She is able to perform active range of motion bilateral lower extremities during physical examination without significant difficulty. She is not currently experiencing any lower extremity radiculopathy. CT imaging that shows some degenerative changes at L5-S1. An MRI of the lumbar spine is ordered and is scheduled to be performed today at 4:30 PM. Given her symptoms of back pain with some difficulty with using her legs in the morning and radiculopathy with numbness which has improved, and changes at L5-S1, we do think it is beneficial to obtain this lumbar MRI imaging for further evaluation. Upon the completion of the MRI we will review this imaging and follow-up with the patient to discuss the results and possible treatment options. We did discuss her urinary changes which is now been ongoing for several weeks may not be specifically related to her lumbar spine. 2. Patient will continue to be seen and examined by medicine for her other medical diagnoses 3. Patient may continue to ambulate to her tolerance Time with Patient: Greater than 30 (Including obtaining history, physical examination, reviewing of imaging, and dictation.) <Sandip Dockery - Last Filed: 11/08/20 11:15> Physical Examination Osteopathic Statement: *. No significant issues noted on an osteopathic structural exam other than those noted in the History and Physical/Consult. Assessment and Plan Plan: The patient is seen and examined at bedside. I reviewed the imaging and discuss case with our physician economist research assistant I agree with the above dictation. His difficult to determine the source of the patient's symptoms. She has had long- term troubles but does not seem to have an acute mechanical neurologic issue in terms of her spine. I do not recommend any acute surgical intervention at this point. I think that her best course may be to seek and continue treatment with neurology.
--- NOTE | 2020-11-08 14:12 | HP ---
HISTORY AND PHYSICAL This is a 35-year-old white female coming in with a chief complaint of back pain and bilateral leg numbness. She is admitted for neurologic evaluation. Orthopedic has seen her and recommends she follow up with neurologist for possible multiple sclerosis flare. CAT scan of her back showed L4-L5 difficulties. Denies any saddle anesthesia, urinary retention, overflow incontinence. Denies any abdominal pain, shortness of breath or chest pain. HOME MEDICATIONS: Home medicines include Zofran, Motrin, cranberry extract, azelastine nasal spray. ALLERGIES: Allergies are negative. REVIEW OF SYSTEMS: Fourteen-point review of systems otherwise negative. PAST MEDICAL HISTORY: Scoliosis, back pain, history of ectopic , history of C difficile, history anxiety and depression. SOCIAL HISTORY: Current everyday smoker. No alcohol. No drugs. FAMILY HISTORY: Mother has polyps in her lung, collapsed lung. PHYSICAL EXAMINATION: VITAL SIGNS: Temp 97 to 98, pulse 70 to 80, respiratory rate 16 to 18, blood pressure 107 to 119 over 68 to 78. BACK: She has some paraspinal tenderness. Negative CVA bilaterally. Decreased sensation of lower extremities and possible tenderness over muscles in her legs. GI: Soft. CARDIOVASCULAR: S1, S2. PSYCH: Fair mood and affect. LUNGS: Are clear. SKIN: Warm, dry, intact. ASSESSMENT: 1. Lumbar spondylosis. 2. Possible multiple sclerosis. Will admit, await for followup after being cleared by Orthopedics for possible neurology evaluation. MMODL / IJN: [id number] /
[2020-11-08] MEDS: NICOTINE 14MG/24HR PATCH TRANSDERM SCH (14:14)
[2020-11-08] MEDS ORDERED: CYCLOBENZAPRINE 5 MG TAB PO PRN (16:07)
--- NOTE | 2020-11-08 22:43 | US ---
EXAMINATION TYPE: US pelvis complete transvag DATE OF EXAM: 11/08/2020 COMPARISON: CT, US CLINICAL HISTORY: ovary cyst. Pain. Hx 2 ectopic pregnancies. Hx treatment with methotrexate. TECHNIQUE: Transvaginal (TV) and Transabdominal (TA) . Transabdominal sonographic images of the pel vis were acquired. Transvaginal sonographic images were medically necessary to better assess the fol lowing anatomy: left ovary and cul de sac. Date of LMP: 10/11/2020 EXAM MEASUREMENTS: Uterus: 8.0 x 3.1 x 2.4 cm Endometrial Stripe: 0.33 cm Right Ovary: 3.4 x 2.3 x 1.9 cm Left Ovary: 5.2 x 3.2 x 3.3 cm 1. Uterus: Anteverted 2. Endometrium: Measures 0.33 cm. 3. Right Ovary: Follicles seen. 4. Left Ovary: Appears enlarged. Arterial and venous waveform shown with pulsed-wave Doppler. Comple x areas seen, #1 measures: 2.6 x 2.5 x 2.6 cm. #2 measures: 2.3 x 1.9 x 1.9 cm. 5. Bilateral Adnexa: Fluid seen in left adnexa: 1.9 x 2.0 x 0.7 cm. 6. Posterior cul-de-sac: Large amount of complex fluid seen measuring 7.1 x 1.2 x 1.1 cm. Hyperecho ic, indistinct components are visualized in cul-de-sac. IMPRESSION: There is moderate free fluid in the cul-de-sac. 2.6 cm cyst noted on the left ovary. Ther e is a second 2 cm cyst on the left ovary. No solid adnexal mass. No evidence of left-sided ovarian t orsion.
--- NOTE | 2020-11-08 23:30 | MR ---
EXAMINATION TYPE: MR lumbar spine wo con DATE OF EXAM: 11/08/2020 COMPARISON: None HISTORY: BLE weakness/numbness, LBP Multiplanar multiecho imaging of the lumbar spine was performed without contrast. Lumbar vertebra have normal alignment. Disc spaces are fairly normal. There is no compression fractur e. Posterior elements are intact. The neural foramina are fairly well-maintained. Sacrum is intact. There is no lumbar paraspinal mass. The visualized sacroiliac joints appear intact. There is anterior disc herniation at L5-S1. IMPRESSION: No spinal stenosis. No evidence of any posterior lumbar disc herniation. No fracture.
[2020-11-08] MEDS: METOCLOPRAMIDE 5 MG/ML 2 ML VIAL IVP PRN (23:47)
[2020-11-09] MEDS: LORazepam 2 MG/ML INJ IV PRN ×3 (00:06→15:31)
[2020-11-09] MEDS: SODIUM CHLORIDE 0.9% 1,000 ML IV SCH ×2 (00:09→16:45)
[2020-11-09] MEDS: ONDANSETRON 4 MG/2 ML VIAL IVP PRN (08:09)
[2020-11-09] MEDS: NICOTINE 14MG/24HR PATCH TRANSDERM SCH (09:10)
--- NOTE | 2020-11-09 09:53 | P.PAINCN ---
History of Present Illness - Reason for Consult Consult date: 11/09/20 - History of Present Illness Diaan is a 35-year-old female who presented to the hospital after having a fall. She reports she fell couple weeks ago but the pain was getting severe so she came to the hospital. She reports that she had initial low back pain with some numbness and tingling in the left anterior thigh. She reports the back pain since resolved. She still has some abdominal pain mostly over the bladder area according to her. She reports she had a urinary tract infection recently was treated with antibiotics but the pain is persisting now. She reports that this is the pain is bothering oximeter back pain anymore. Which she's been able to walk. She denies any significant bowel or bladder incontinence or retention denies any overt lower extremity weakness. She denies any upper extremity weakness or any neck pain. Surgeon MRI of the lumbar spine which shows an anterior disc bulge at L5-S1 which is mild in nature. There is some facet arthropathy. There is mild degeneration. CT of lumbar spine also was reviewed. Review of Systems She endorses occasional low back pain with anterior leg pain. She endorses abdominal pain without any bowel or bladder incontinence. She denies any headaches, nausea vomiting, chest pain, upper extremity weakness on the stinging. Past Medical History Past Medical History: No Reported History Additional Past Medical History / Comment(s): scoliosis, back pain. MS, ectopic x 2 History of Any Multi-Drug Resistant Organisms: None Reported, C-DIFF Year Discovered:: 2016 MDRO Source:: stool Past Surgical History: No Surgical Hx Reported Additional Past Surgical History / Comment(s): Ruptured fallopian tube - repair Past Anesthesia/Blood Transfusion Reactions: No Reported Reaction Past Psychological History: Anxiety, Depression Smoking Status: Current every day smoker Past Alcohol Use History: None Reported Past Drug Use History: None Reported Additional Drug Use History / Comment(s): pt states she uses marijuana occasionally - Past Family History Mother Additional Family Medical History / Comment(s): polyps on lung, collapsed lung Medications and Allergies Home Medications Medication Instructions Recorded Confirmed Type Azelastine HCl 2 spray EA NOSTRIL DAILY 11/07/20 11/07/20 History Cranberry Fruit Extract [Cranberry] 500 mg PO DAILY 11/07/20 11/07/20 History Ibuprofen [Motrin Ib] 200 mg PO Q8H PRN 11/07/20 11/07/20 History Ondansetron [Zofran] 4 mg PO Q6H PRN 11/07/20 11/07/20 History Allergies Allergy/AdvReac Type Severity Reaction Status Date / Time No Known Allergies Allergy Verified 11/07/20 18:32 Physical Exam Vitals: Vital Signs Temp Pulse Resp BP Pulse Ox 11/09/20 07:00 98.4 F 71 18 110/62 97 11/09/20 02:00 98.3 F 97 16 89/51 97 11/08/20 20:00 97.9 F 62 16 128/76 100 11/08/20 15:00 98 F 62 16 92/55 99 Intake and Output 11/08/20 11/09/20 11/09/20 22:59 06:59 14:59 Other: # Voids 2 0 General: Awake and alert oriented 3 no distress Respiratory exam: No audible wheezing no accessory muscle usage Cardiovascular exam: regular rate, palpable bilateral pulses, no lower extremity edema Abdominal exam: No distention nontender to palpation Cervical spine: Normal alignment, Spurling's negative, facet loading negative, Book Critic strength is 5/5, eduardo negative Lumbar spine: There is limited movement as the patient reports abdominal pain, I was unable to examine her lumbar spine fully. Lower extremity strength is normal bilaterally at the quadriceps, hamstrings, anterior tibialis. EHL strength is normal as well. She is able to dorsiflex and extend the ankles bilaterally. She is able to give her an inverted ankle. Sacroiliac joints: Nontender to palpation, PILAR is negative, Gaenselon negative Hip joints: There is normal range of motion in the hip. The patient reports that his pain move the hip joint to fast, the range of motion is preserved on my exam today Neuro exam: Normal sensation in bilateral upper extremities, deep tendon ref lexes are 2+ bilateral upper extremities. Normal sensation in bilateral lower extremities. Deep tendon reflexes are 2+ in lower extremities Psych exam: Cooperative, appropriate mood Assessment and Plan Assessment: #1 low back pain #2 abdominal pain #3 degenerative disc disease at L5-S1 Plan: I expect the patient that I do not believe any of her back complaints or leg complaints to be treated acutely. She is welcome to follow up in our clinic for management of this pain if it persists. She'll be treated for abdominal pain by the primary team. If there are any questions or concerns please feel free reach out to us directly. If she would like, please have [facility] at [facility]. I spent a total of 35 minutes reviewing the patient's medical records, imaging studies, supination the patient, and formation of care. I have also spent time dictating the medical record. PQRS Measure Charge Sheet PQRS Narrative: Smoking Status Current every day smoker Blood Pressure [Right Arm] 110/62 Blood Pressure 102/47 Pain Intensity [Lower Back] 6 Pain Intensity 1 Pain Scale Used Numeric (1 - 10) Scale Used Numeric (1 - 10) Home Medications: Ambulatory Orders Azelastine HCl 2 spray EA NOSTRIL DAILY 11/07/20 Cranberry Fruit Extract [Cranberry] 500 mg PO DAILY 11/07/20 Ibuprofen [Motrin Ib] 200 mg PO Q8H PRN 11/07/20 Ondansetron [Zofran] 4 mg PO Q6H PRN 11/07/20
[2020-11-09] MEDS ORDERED: PANTOPRAZOLE 40 MG/10 ML VIAL IVP SCH (10:30)
[2020-11-09 10:57] LABS: Basophils % (A) 0 %; Eosinophils # (A) 0.4 k/uL (0-0.7); Eosinophils % (A) 5 %; HCT 39.2 % (34.0-46.0); HGB 12.8 gm/dL (11.4-16.0); Lymphocytes # (A) 2.1 k/uL (1.0-4.8); Lymphocytes % (A) 27 %; MCH 28.8 pg (25.0-35.0); MCHC 32.6 g/dL (31.0-37.0); MCV 88.2 fL (80.0-100.0); Mean Platelet Volume 7.1; Monocytes # (A) 0.4 k/uL (0-1.0); Monocytes % (A) 6 %; Neutrophils # (A) 4.8 k/uL (1.3-7.7); Neutrophils % (A) 61 %; Platelet Count 265 k/uL (150-450); RBC 4.44 m/uL (3.80-5.40); RDW 13.3 % (11.5-15.5); WBC 7.8 k/uL (3.8-10.6)
[2020-11-09 11:01] LABS: ALT <6 U/L (4-34); AST 18 U/L (14-36); African American GFR (CKD) >90 (>60 ml/min/1.73 sqM); Albumin 3.9 g/dL (3.5-5.0); Albumin/Globulin Ratio 1.5; Alkaline Phosphatase 43 U/L (38-126); Amylase 39 U/L (30-110); Anion Gap 4 mmol/L; Blood Urea Nitrogen 10 mg/dL (7-17); Calcium 8.8 mg/dL (8.4-10.2); Carbon Dioxide 27 mmol/L (22-30); Chloride 108 mmol/L (98-107); Globulin 2.6 g/dL; Glucose 88 mg/dL (74-99); Lipase 41 U/L (23-300); Non-African American GFR(CKD) >90 (>60 ml/min/1.73 sqM); Potassium 4.7 mmol/L (3.5-5.1); Sodium 139 mmol/L (137-145); Total Protein 6.5 g/dL (6.3-8.2)
[2020-11-09] MEDS: METOCLOPRAMIDE 5 MG/ML 2 ML VIAL IVP PRN (13:28)
[2020-11-09 16:02] VITALS: BP 98/62; PULSE 70; RESP 16; TEMP 98
[2020-11-10] MEDS ORDERED: LORATADINE 10 MG TAB PO SCH (09:00)
== END 2020-11-09 17:38 ==
LOC: EC 15:38 → 6NMEDSUR 19:04
PROVIDERS: ADMIT Family Medicine; ATTEND Family Medicine
DX: M51.37 Other intervertebral disc degeneration, lumbosacral region (principal); M47.26 Other spondylosis with radiculopathy, lumbar region; M47.27 Other spondylosis with radiculopathy, lumbosacral region; R11.10 Vomiting, unspecified; M43.10 Spondylolisthesis, site unspecified; M41.9 Scoliosis, unspecified; F41.9 Anxiety disorder, unspecified; N83.202 Unspecified ovarian cyst, left side; F32.9 Major depressive disorder, single episode, unspecified; F17.200 Nicotine dependence, unspecified, uncomplicated; Z79.1 Long term (current) use of non-steroidal anti-inflammatories (NSAID); Z79.899 Other long term (current) drug therapy; Z91.81 History of falling; Z87.440 Personal history of urinary (tract) infections; Z87.39 Personal history of other diseases of the musculoskeletal system and connective tissue; Z20.822 Contact with and (suspected) exposure to COVID-19; Z83.6 Family history of other diseases of the respiratory system
CPT/HCPCS: 96376 ×2; 96361 ×2; 96375 ×3; 96374; 99284; 80053; 82150; 83690; 85025; 81003; 81025; 87635; 93976; 76856; 76830; 72131; 72148; G0378 ×3; S4990 ×2; J2060 ×3; J2270; J2765 ×2; J2405 ×3; C9113

== ENCOUNTER → 2020-11-30 | Day surgery (SDC) | payer OTHER ==
[2020-11-28 10:44] VITALS: BMI 25.4
[~2020-11-30] MED LIST changes: +LIDOCAINE 1% (10MG/ML) FOR IV START INTRADERMA ONE; +LIDOCAINE 1% INJ 10MG/ML (20 ML MDV) ONE; -METHOTREXATE SODIUM (PF) 25 MG/ML 2 ML VIAL IM NR; +PROPOFOL 10 MG/ML 50 ML VIAL IV ONE
[2020-11-30 11:12] VITALS: RESP 16; TEMP 98.3
[2020-11-30] MEDS: LACTATED RINGERS 1,000 ML IV SCH ×2 (11:25→11:43)
--- NOTE | 2020-11-30 11:49 | P.GSHP ---
History of Present Illness H&P Date: 11/30/20 Chief Complaint: GERD This a 35-year-old female who presents today for EGD. She's had issues with GERD. Past Medical History Past Medical History: No Reported History Additional Past Medical History / Comment(s): scoliosis, back pain. MS, ectopic x 2, FREQ N/V History of Any Multi-Drug Resistant Organisms: None Reported, C-DIFF Date of last positivie culture/infection: 2015 MDRO Source:: stool Past Surgical History: No Surgical Hx Reported Additional Past Surgical History / Comment(s): Ruptured fallopian tube - repair, EGD, COLONOSCOPY Past Anesthesia/Blood Transfusion Reactions: No Reported Reaction Smoking Status: Current every day smoker - Past Family History Mother Additional Family Medical History / Comment(s): polyps on lung, collapsed lung Medications and Allergies Home Medications Medication Instructions Recorded Confirmed Type Cranberry Fruit Extract [Cranberry] 500 mg PO DAILY 11/07/20 11/30/20 History Ondansetron [Zofran] 4 mg PO Q6H PRN 11/07/20 11/30/20 History methocarbamoL [Robaxin] 1,000 mg PO BID 11/28/20 11/30/20 History Allergies Allergy/AdvReac Type Severity Reaction Status Date / Time No Known Allergies Allergy Verified 11/30/20 10:57 Surgical - Exam Vital Signs Temp Pulse Resp BP Pulse Ox 98.3 F 58 L 16 99/42 98 11/30/20 11:10 11/30/20 11:10 11/30/20 11:10 11/30/20 11:10 11/30/20 11:10 - General well developed, well nourished, no distress - Eyes PERRL - ENT normal pinna - Neck no masses - Respiratory normal expansion - Cardiovascular Rhythm: regular - Abdomen Abdomen: soft, non tender Assessment and Plan Assessment: GERD. We'll perform EGD.
--- NOTE | 2020-11-30 11:58 | P.OP ---
Date of Procedure: 11/30/20 Preoperative Diagnosis: GERD Postoperative Diagnosis: Mild antral gastritis Procedure(s) Performed: EGD Anesthesia: MAC Surgeon: Royal Lomeli Pathology: other (Antrum, esophagus) Condition: stable Disposition: PACU Description of Procedure: Patient's placed on the endoscopy table in the lateral position. She received IV sedation. The gastroscope was oropharynx passed in the esophagus into the stomach. Scope was then placed through the pylorus. First and second portion of the duodenum appeared normal. Scope was then brought back the antrum this was mildly inflamed. A biopsies performed. The scope was unretroflexed and remainder of the stomach appeared normal. There was no significant hiatal hernia. The GE junction was at 39 cm. The distal esophagus appeared mildly inflamed a biopsies performed of the proximal esophagus appeared normal. Scope was withdrawn for patient.
[2020-11-30 12:28] VITALS: BP 102/70; PULSE 76
--- NOTE | 2020-11-30 14:45 | NM ---
EXAMINATION TYPE: NM hepatobiliary w CCK DATE OF EXAM: 11/30/2020 COMPARISON: NONE INDICATION: Indigestion TECHNIQUE: After the intravenous administration of 4.8 mCi Tc 99m Mebrofenin hepatobiliary scintigrap hy is performed. Images were obtained immediately post injection. FINDINGS: There is prompt uptake and excretion of radiotracer by the liver. Extrahepatic ducts are identified at 5 6 minutes. The gallbladder is visualized within 7-8 minutes. Small bowel activity is noted within 12 minutes. At one hour CCK was administered, patient was injected with 1.2 mcg of Kinevac, and gallbladder eject ion fraction is calculated at 86 %, which is elevated. (Normal >35% and <80%.). IMPRESSION: 1. Biliary hyperkinesia.
== END ==
LOC: ORWHC2ENDO 09:48
PROVIDERS: ATTEND Surgery
DX: K21.00 Gastro-esophageal reflux disease with esophagitis, without bleeding (principal); K31.9 Disease of stomach and duodenum, unspecified; K29.70 Gastritis, unspecified, without bleeding; M41.9 Scoliosis, unspecified; G35 Multiple sclerosis; F17.200 Nicotine dependence, unspecified, uncomplicated; Z87.59 Personal history of other complications of pregnancy, childbirth and the puerperium; Z86.19 Personal history of other infectious and parasitic diseases; Z98.890 Other specified postprocedural states; Z79.899 Other long term (current) drug therapy; Z97.2 Presence of dental prosthetic device (complete) (partial); Z82.5 Family history of asthma and other chronic lower respiratory diseases
CPT/HCPCS: 81025; 88305; 78227; 43239; A9537; J2805; J2001; J2704

== ENCOUNTER 2020-12-29 06:35 | Day surgery (SDC) | payer OTHER ==
[2020-12-26 09:59] VITALS: BMI 25.0
[~2020-12-29 06:35] MED LIST changes: +ACETAMINOPHEN TAB 500 MG TAB PO PRN; +DEXAMETHASONE SOD PHOSPHATE 4 MG/ML 1 ML VIAL IV ONE; +HEPARIN SODIUM,PORCINE/PF 5,000 UNIT/0.5 ML SYRINGE SQ PRN; +LACTATED RINGERS 1,000 ML IV SCH; -LIDOCAINE 1% (10MG/ML) FOR IV START INTRADERMA ONE; +LIDOCAINE 1% (10MG/ML) FOR IV START INTRADERMA PRN; -LIDOCAINE 1% INJ 10MG/ML (20 ML MDV) ONE; +MIDAZOLAM 2 MG/2 ML VIAL IV PRN; +ONDANSETRON 4 MG/2 ML VIAL IVP ONE; -PROPOFOL 10 MG/ML 50 ML VIAL IV ONE
[2020-12-29 07:02] VITALS: RESP 16
[2020-12-29] MEDS ORDERED: SCOPOLAMINE 1.5MG/72HR PATCH TRANSDERM ONE (07:30)
[2020-12-29] MEDS ORDERED: LIDOCAINE 1% INJ 10MG/ML (20 ML MDV) ONE (07:35)
[2020-12-29] MEDS ORDERED: fentaNYL (PF) 50 MCG/ML 2 ML AMP ONE (07:35)
[2020-12-29] MEDS ORDERED: SUCCINYLCHOLINE CHLORIDE 100 MG/5 ML SYR IV ONE (07:35)
[2020-12-29] MEDS ORDERED: ROCURONIUM 10 MG/ML (5 ML VIAL) IV ONE (07:35)
[2020-12-29] MEDS ORDERED: NEOSTIGMINE 1 MG/ML 10 ML VIAL ONE (07:35)
[2020-12-29] MEDS ORDERED: GLYCOPYRROLATE 0.2 MG/ML 2 ML VIAL ONE (07:35)
[2020-12-29] MEDS ORDERED: PROPOFOL 10 MG/ML 20 ML VIAL IV ONE (07:35)
[2020-12-29] MEDS ORDERED: BUPIVACAINE (PF) 0.5% 30 ML VIAL SQ ONE (07:56)
--- NOTE | 2020-12-29 08:23 | P.GSHP ---
History of Present Illness H&P Date: 12/29/20 Chief Complaint: Right upper quadrant pain This a 32-year-old female with right quadrant pain. Her recent HIDA scan shows abnormal ejection fraction patient rents today for laparoscopic cholestatic for chronic cholecystitis. Past Medical History Past Medical History: Neurologic Disorder Additional Past Medical History / Comment(s): scoliosis, back pain. MS, ectopic x 2, FREQ N/V History of Any Multi-Drug Resistant Organisms: C-DIFF Date of last positivie culture/infection: 2015 MDRO Source:: stool Past Surgical History: No Surgical Hx Reported Additional Past Surgical History / Comment(s): Ruptured fallopian tube - repair, EGD, COLONOSCOPY Past Anesthesia/Blood Transfusion Reactions: No Reported Reaction Smoking Status: Current every day smoker - Past Family History Mother Additional Family Medical History / Comment(s): polyps on lung, collapsed lung Medications and Allergies Home Medications Medication Instructions Recorded Confirmed Type Cranberry Fruit Extract [Cranberry] 500 mg PO DAILY 11/07/20 12/29/20 History Ondansetron [Zofran] 4 mg PO Q6H PRN 11/07/20 12/29/20 History methocarbamoL [Robaxin] 500 mg PO BID PRN 11/28/20 12/29/20 History Phenylephrine HCl 10 mg PO DAILY PRN 12/26/20 12/29/20 History Allergies Allergy/AdvReac Type Severity Reaction Status Date / Time No Known Allergies Allergy Verified 12/29/20 07:02 Surgical - Exam Vital Signs Temp Pulse Resp BP Pulse Ox 97.9 F 72 16 109/51 96 12/29/20 06:52 12/29/20 06:52 12/29/20 06:52 12/29/20 06:52 12/29/20 06:52 - General well developed, well nourished, no distress - Eyes PERRL - ENT normal pinna - Neck no masses - Respiratory normal expansion - Cardiovascular Rhythm: regular - Abdomen Abdomen: soft, non tender Assessment and Plan Assessment: Right upper quadrant pain Chronic cholecystitis We'll perform laparoscopic cholecystectomy
--- NOTE | 2020-12-29 08:25 | P.OP ---
Date of Procedure: 12/29/20 Preoperative Diagnosis: Chronic cholecystitis Postoperative Diagnosis: Chronic cholecystitis Procedure(s) Performed: Laparoscopic cholecystectomy Anesthesia: ERIN Surgeon: Royal Lomeli Estimated Blood Loss (ml): 5 Pathology: other (gAll bladder) Condition: stable Disposition: PACU Description of Procedure: The patient was placed on the operating table. The patient received a general endotracheal tube anesthesia. The patients abdomen was prepped and draped in the usual sterile fashion. Through an infraumbilical stab incision, the fascia of the anterior abdominal wall was grasped with a pair of Kochers and then the Veress needle was placed in the peritoneal cavity. Position of the Veress needle was confirmed with positive drop test. The abdomen was then insufflated. After adequate insufflation, the 10 mm trocar was placed in the peritoneal cavity. Following this the laparoscope was placed in the peritoneal cavity. The patient was placed in the head-up, right side up position and then a 5 mm trocar was placed in the right lateral and right subcostal position under direct visualization. A 8 mm trocar was placed in the epigastric position. The gallbladder was grasped in the fundus and infundibulum. Traction on the gallbladder was placed in the lateral and the cephalad positions. The triangle of Calot was visualized.. The cystic duct was bluntly dissected until the union of the cystic duct and common bile duct was seen. A critical view of safety was achieved. The cystic duct was then divided and sealed with the Harmonic scissors. A PDS Endoloop was then placed throughout the cystic duct stump. The cystic artery divided and sealed with the Harmonic scissors. The gallbladder was then removed from the liver bed using Harmonic scissors. The gallbladder was then extracted through the epigastric port site. Operative field was checked for any bleeding spots and Harmonic scissors was used to coagulate the liver bed. The abdomen was irrigated. The trocars were removed. The skin was closed using interrupted 3-0 Vicryl suture. Dermabond dressing were applied. The patient tolerated the procedure well.
[2020-12-29 08:27] VITALS: TEMP 97.1
[2020-12-29] MEDS: HYDROmorphone 0.5 MG/0.5 ML SYRINGE IVP PRN ×2 (08:32→08:41)
[2020-12-29] MEDS ORDERED: ONDANSETRON 4 MG/2 ML VIAL ONE (09:38)
[2020-12-29] MEDS ORDERED: ONDANSETRON 4 MG/2 ML VIAL IVP ONE (09:40)
[2020-12-29] MEDS ORDERED: ACETAMINOPHEN TAB 500 MG TAB ONE (09:43)
[2020-12-29] MEDS ORDERED: ACETAMINOPHEN TAB 500 MG TAB PO ONE (09:44)
[2020-12-29] MEDS ORDERED: LACTATED RINGERS 1,000 ML IV ONE (10:23)
[2020-12-29 10:54] VITALS: BP 106/50; PULSE 53
== END 2020-12-29 11:04 | disposition home or self-care (01) ==
LOC: OR 06:35
PROVIDERS: ATTEND Surgery
DX: K81.1 Chronic cholecystitis (principal); G35 Multiple sclerosis; M41.9 Scoliosis, unspecified; Z86.19 Personal history of other infectious and parasitic diseases; Z98.890 Other specified postprocedural states; F17.210 Nicotine dependence, cigarettes, uncomplicated; Z83.6 Family history of other diseases of the respiratory system; Z97.2 Presence of dental prosthetic device (complete) (partial); Z79.899 Other long term (current) drug therapy; Z87.59 Personal history of other complications of pregnancy, childbirth and the puerperium
CPT/HCPCS: 81025; 88304; 47562; J2250; J1100; J2710; J0690; J2405; J2001; J3010; J0330; J2704; J1170; J1644

== ENCOUNTER → 2021-06-21 | Outpatient (CLI) | payer OTHER ==
--- NOTE | 2021-06-21 12:10 | USB ---
Reason for exam: clinical finding. History: Family history of breast cancer in grandmother. Indicated problem(s): pain in the right breast. Physical Findings: Nurse Summary: dense patches of tissue, pain (nurse db). US Breast RT Right complete breast ultrasound includes all four quadrants, the retroareolar region and axilla. Finding demonstrates a 0.4 x 0.7 x 0.2cm cystic lesion at 1 o'clock and a 0.4 x 0.4 x 0.4cm mixed lesion at 8 o'clock, likely debris filled cyst, 6 month follow up recommended. These results were verbally communicated with the patient and result sheet given to the patient on 06/21/21. ASSESSMENT: Probably benign, BI-RAD 3 RECOMMENDATION: Ultrasound of the right breast in 6 months.
== END | disposition home or self-care (01) ==
LOC: RADUSWWP 07:48
PROVIDERS: ATTEND Family Medicine
DX: N63.0 Unspecified lump in unspecified breast (principal); N64.4 Mastodynia; Z80.3 Family history of malignant neoplasm of breast

== ENCOUNTER → 2022-04-30 | Outpatient (CLI) | payer OTHER ==
[2022-04-30 10:31] VITALS: BP 106/70; PULSE 75; RESP 18; TEMP 98.7
--- NOTE | 2022-04-30 11:55 | P.HPOB ---
History of Present Illness H&P Date: 04/30/22 Chief Complaint: The patient is here for her routine gynecologic exam. This is a 37-year-old with an LMP of 03/22/2022. She is here to establish with this patient. Her last pelvic exam was about 2 years ago. She states her menstrual periods are regular every month, but she is about 8 days late and started some light spotting today. She denies any current pain today, but has experienced right-sided dyspareunia occasionally since her right ectopic in 2014. She has a history of 2 ectopic pregnancies and the second one was treated with methotrexate in 2019. She does not actively prevent and she would not mind getting . She says there is a possibility that she is . She has experienced some breast tenderness. Review of Systems She states her weight fluctuates from between 119 pounds and 135 pounds. She denies respiratory or cardiac problems. GI: Occasional constipation. Past Medical History Past Medical History: Neurologic Disorder Additional Past Medical History / Comment(s): scoliosis, back pain. FREQ N/V. 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 ectopic x 2 History of Any Multi-Drug Resistant Organisms: C-DIFF Date of last positivie culture/infection: 2015 MDRO Source:: stool Additional Past Surgical History / Comment(s): Laparoscopic fallopian tube repair for ruptured ectopic 2014, EGD, COLONOSCOPY Past Anesthesia/Blood Transfusion Reactions: No Reported Reaction Past Psychological History: Anxiety, Depression (She denies current depression without medication.) Smoking Status: Former smoker, Vaper (She vapes daily.) Past Alcohol Use History: None Reported, Abuse Additional Past Alcohol Use History / Comment(s): Quit smoking cigarettes at the beginning of 2021. 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 Past Drug Use History: Marijuana (About every other day.) Additional Drug Use History / Comment(s): pt states she uses marijuana occasionally-INSTRUCTED TO REFRAIN FROM USE FOR AT LEAST 24 HOURS PRIOR TO PROCEDURE Additional History: She has been since 2018. She works doing food delivery. - Past Family History Mother Family Medical History: Neurologic Disorder Additional Family Medical History / Comment(s): polyps on lung, collapsed lung, MS. Bipolar disorder. Pulmonary fibrosis. Father Additional Family Medical History / Comment(s): Alcoholic. Paternal grandmother had breast cancer. Paternal uncle had brain cancer. Medications and Allergies Home Medications Medication Instructions Recorded Confirmed Type Ondansetron [Zofran] 4 mg PO Q6H PRN 11/07/20 04/30/22 History Acetaminophen Tab [Tylenol] 650 mg PO Q6H #30 tab 12/29/20 04/30/22 Rx Ibuprofen [Motrin] 600 mg PO Q6HR PRN #40 tab 12/29/20 04/30/22 Rx Fexofenadine HCl [Grazyna Allergy] 60 mg PO DAILY PRN 04/30/22 04/30/22 History Allergies Allergy/AdvReac Type Severity Reaction Status Date / Time No Known Allergies Allergy Verified 04/30/22 10:20 Exam Vital Signs Temp Pulse Resp BP Pulse Ox 04/30/22 10:27 98.7 F 75 18 106/70 99 Intake and Output 04/29/22 04/30/22 04/30/22 22:59 06:59 14:59 Other: Weight 61.235 kg Height 5 feet 0 inches, weight 135 pounds, BMI 26.4. This is a well-developed well-nourished white female who is alert and oriented times 3 in no acute distress. HEENT: Within normal limits. NECK: Supple without mass or thyromegaly. CHEST AND LUNGS: Clear to auscultation. HEART: Regular rate and rhythm. BREASTS: Are without mass or discharge. There is moderate fibrous tissue throughout both breasts with no palpable dominant mass. There is a mole on the right breast at the 11 o'clock position measuring 15 x 10 mm. She states she has had this for many years. AXILLARY EXAM: Negative for adenopathy. BACK: Negative for CVA tenderness. ABDOMEN: Soft, nontender, without palpable masses. PELVIC EXAM: Normal external genitalia. Cervix and vagina appear normal with a small amount of menstrual type blood in the vagina. There is no unusual discharge. There is no cervical motion tenderness. There is no evidence of prolapse. The uterus is midposition, nongravid size and nontender. There is mild right adnexal tenderness without palpable mass. There is no left adnexal tenderness. RECTAL EXAM: Deferred. EXTREMITIES: Nontender. IMPRESSION: 1. 37-year-old female with mild right pelvic tenderness on exam today. With her history of 2 previous ectopic pregnancies, differential diagnosis will include ectopic , ovarian cyst, pelvic adhesions from her previous tubal surgery, or possible non-gynecologic cause. 2. History of right breast cyst by ultrasound on 06/21/2021. PLAN: 1. Pap smear cotest was performed. 2. Self breast awareness was discussed with the patient. We have also discussed symptoms associated with inflammatory breast cancer. 3. Stat quantitative serum hCG will be drawn today. If it is positive, she understands she is at a significantly increased risk for ectopic which could warrant immediate attention. She was instructed to go to the emergency room if she is experiencing pelvic pain, faint feeling or lightheadedness. If her test is positive, she will be referred to a local clothing designer for evaluation for possible ectopic , possible treatment or possible surgery, or be sent to the emergency room for possible ectopic . 4. I recommended that she take a multivitamin daily since she is not actively preventing . She understands this may decrease the risk of certain defects. 5. She is declining any method of control at this time. 6. She understands that a right breast ultrasound was recommended after her previous ultrasound last June. The order slip was given to the patient for this. 7. She was advised to return in one year for her annual well woman exam and as above.
--- NOTE | 2022-04-30 14:14 | P.PN ---
Progress Note - Text Progress Note Date: 04/30/22 OUTPATIENT FOLLOW-UP NOTE TEST(S)/RESULTS: Serum hCG drawn today was negative. METHOD OF NOTIFICATION: The patient was notified by phone. PATIENT COMMENTS: DIAGNOSIS: Right pelvic tenderness and intermittent pelvic pain with negative test. This rules out ectopic . DISCUSSION: Because of the right pelvic tenderness and intermittent pelvic pain, we will still have her do a pelvic ultrasound. She was notified of this recommendation. The order slip will be mailed to the patient. PLAN: As above.
== END | disposition home or self-care (01) ==
LOC: WWCWWP 10:08
PROVIDERS: ATTEND Obstetrics & Gynecology
DX: Z01.419 Encounter for gynecological examination (general) (routine) without abnormal findings (principal); R68.89 Other general symptoms and signs
CPT/HCPCS: 84702

== ENCOUNTER → 2022-12-07 | Outpatient (CLI) | payer OTHER ==
[2022-12-07 16:31] LABS: Basophils # (A) 0.08 X 10*3/uL (0.00-0.10); Basophils % (A) 0.9 %; Eosinophils # (A) 0.86 X 10*3/uL (0.04-0.35); Eosinophils % (A) 9.5 %; HCT 36.8 % (37.2-46.3); HGB 11.6 g/dL (12.0-15.0); Immature Grans, Automated 0.3 %; Lymphocytes # (A) 2.44 X 10*3/uL (0.90-5.00); MCH 28.1 pg (27.0-32.0); MCHC 31.5 g/dL (32.0-37.0); MCV 89.1 fL (80.0-97.0); Mean Platelet Volume 9.4 fL (9.5-12.2); Monocytes # (A) 0.59 X 10*3/uL (0.20-1.00); Monocytes % (A) 6.5 %; NRBC Per 100 WBC 0 /100 WBCS (0.0-0.0); Neutrophils # (A) 5.04 X 10*3/uL (1.80-7.70); Neutrophils % (A) 55.8 %; Platelet Count 402 X 10*3/uL (140-440); RBC 4.13 X 10*6/uL (4.10-5.20); RDW 13.4 % (11.5-14.5); WBC 9.04 X 10*3/uL (4.50-10.00)
== END | disposition home or self-care (01) ==
LOC: LABPAT 11:41
PROVIDERS: ATTEND Obstetrics & Gynecology
DX: Z01.812 Encounter for preprocedural laboratory examination (principal); O00.90 Unspecified ectopic pregnancy without intrauterine pregnancy
CPT/HCPCS: 85025

== ENCOUNTER 2022-12-10 06:24 | Day surgery (SDC) | payer OTHER ==
[2022-12-05 10:45] VITALS: BMI 26.4
[~2022-12-10 06:24] MED LIST changes: -ACETAMINOPHEN TAB 500 MG TAB PO PRN; -HEPARIN SODIUM,PORCINE/PF 5,000 UNIT/0.5 ML SYRINGE SQ PRN; -MIDAZOLAM 2 MG/2 ML VIAL IV PRN; +Pre Op ABX Message 1 EACH MISC MISCELLANE ONE
--- NOTE | 2022-12-10 07:29 | HP ---
HISTORY AND PHYSICAL For surgery on the morning of December 10, 2022. HISTORY OF PRESENT ILLNESS: The patient is a 37-year-old 2, para 0-0-2-0, who presents initially in early with vaginal bleeding, at which time, she was diagnosed with a right ectopic . She then underwent methotrexate treatment and has had her hCG levels followed to 0. This is now her third ectopic on the right. As a result, we have opted to proceed to the operating room for right salpingectomy to alleviate that possibility in the future. PAST MEDICAL HISTORY: Significant for a history of Clostridium difficile in the past. She additionally has anxiety and depression. She has a diagnosis of multiple sclerosis as well as possibly scoliosis, and she has had the aforementioned history of 3 previous ectopic pregnancies. PAST SURGICAL HISTORY: Significant for apparent repair of her right fallopian tube in 2017. She additionally had a D and C at the same time. There were no apparent anesthetic concerns. OBSTETRICAL HISTORY: 3, para 0-0-3-0 with 3 ectopic pregnancies as noted in the history of present illness. Method of contraception is currently condoms. GYNECOLOGIC HISTORY: Unremarkable with no apparent history of infections to include STDs. FAMILY HISTORY: Noncontributory. SOCIAL HISTORY: The patient is and is a former smoker having quit in 2019. She denies any significant alcohol, drugs, or any other social concerns. CURRENT MEDICATIONS: Include: 1. Lexapro 10 mg daily. 2. Omeprazole 40 mg daily. ALLERGIES: No known drug allergies. REVIEW OF SYSTEMS: Confined to history of present illness. PHYSICAL EXAMINATION: GENERAL: This is a well-developed, well-nourished, white female, in no acute distress. HEART: Has regular rhythm and rate without murmur. LUNGS: Clear to auscultation bilaterally in all helms. ABDOMEN: Nondistended, has normoactive bowel sounds, soft, nontender, and without any palpable masses, hepatosplenomegaly, or hernias. EXTREMITIES: Without any cyanosis, clubbing, or edema and are nontender to palpation bilaterally. PELVIC: Deferred to the operating room. ASSESSMENT AND PLAN: Recurrent right ectopic : Given the recurrence x3, it is clear that the right fallopian tube is damaged beyond repair. We discussed options, and she has agreed to undergo a laparoscopic right salpingectomy. The risks and complications have been thoroughly discussed to include bleeding, bleeding requiring transfusion, infection, and injury to local structures to specifically include the bowel, bladder, and ureters. She has understood all this and agreed to proceed. We are scheduled for the above procedure on the morning of December 10, 2022. MMODL / IJN: [id number] /
[2022-12-10] MEDS ORDERED: BUPIVACAINE (PF) 0.5% 30 ML VIAL SQ ONE ×2 (07:34→08:23)
[2022-12-10] MEDS ORDERED: LIDOCAINE 2% INJ 20 MG/ML (2 ML VIAL) ONE (07:36)
[2022-12-10] MEDS ORDERED: fentaNYL (PF) 50 MCG/ML 2 ML AMP ONE (07:36)
[2022-12-10] MEDS ORDERED: ACETAMINOPHEN IV (For NPO) 1,000 MG/100 ML VIAL ONE (07:36)
[2022-12-10] MEDS ORDERED: GLYCOPYRROLATE 0.2 MG/ML 2 ML VIAL ONE (07:36)
[2022-12-10] MEDS ORDERED: ROCURONIUM 10 MG/ML (5 ML VIAL) IV ONE (07:36)
[2022-12-10] MEDS ORDERED: KETOROLAC 30 MG/ML 1 ML VIAL ONE (07:36)
[2022-12-10] MEDS ORDERED: SUCCINYLCHOLINE CHLORIDE 200 MG/10 ML VIAL IV ONE (07:36)
[2022-12-10] MEDS ORDERED: MIDAZOLAM 2 MG/2 ML VIAL ONE (07:36)
[2022-12-10] MEDS ORDERED: ONDANSETRON 4 MG/2 ML VIAL ONE (07:36)
[2022-12-10] MEDS ORDERED: HYDROmorphone (PF) 1 MG/ML ONE (07:36)
[2022-12-10] MEDS ORDERED: NEOSTIGMINE 1 MG/ML 10 ML VIAL ONE (07:36)
[2022-12-10] MEDS ORDERED: PROPOFOL 10 MG/ML 20 ML VIAL IV ONE (07:36)
[2022-12-10] MEDS ORDERED: LACTATED RINGERS 1,000 ML IV ONE ×2 (08:23→11:30)
[2022-12-10 08:41] VITALS: TEMP 97.5
[2022-12-10] MEDS ORDERED: ONDANSETRON 4 MG/2 ML VIAL IVP PRN (08:43)
[2022-12-10] MEDS ORDERED: METOCLOPRAMIDE 5 MG/ML 2 ML VIAL IVP PRN (08:43)
[2022-12-10] MEDS ORDERED: diphenhydrAMINE 50 MG/ML 1 ML VIAL IVP PRN (08:43)
[2022-12-10] MEDS ORDERED: IBUPROFEN 600 MG TAB PO PRN (08:43)
[2022-12-10] MEDS ORDERED: KETOROLAC 15 MG/ML 1 ML VIAL IVP PRN (08:43)
[2022-12-10] MEDS ORDERED: SIMETHICONE 80 MG CHEWABLE PO PRN (08:43)
[2022-12-10] MEDS ORDERED: Acetaminophen-Codeine 300-30mg TAB PO PRN ×2 (08:43)
[2022-12-10] MEDS: HYDROmorphone 0.5 MG/0.5 ML SYRINGE IVP PRN ×2 (08:44→08:52)
[2022-12-10] MEDS ORDERED: LACTATED RINGERS 1,000 ML IV SCH (08:45)
--- NOTE | 2022-12-10 08:56 | P.OP ---
Date of Procedure: 12/10/22 Preoperative Diagnosis: #1. Recurrent right ectopic Postoperative Diagnosis: Same Procedure(s) Performed: #1. Laparoscopic right salpingectomy [facility] Surgeon: Be Miguel Estimated Blood Loss (ml): 5 IV fluids (ml): 800 Urine output (ml): 5 Pathology: other (Right fallopian tube) Condition: stable Disposition: PACU Operative Findings: Preoperative pelvic examination demonstrated a 4 week midplane mobile normal shaped uterus with normal adnexa bilaterally. Intraoperatively, the right fallopian tube was very clearly damaged with of very thin are absent portions throughout the isthmic portion to approximately the beginning of the ampulla. The left fallopian tube appeared entirely normal. Both ovaries were normal to inspection. There is no evidence of any nature of surgery other pathology throughout. The appendix appeared normal as did the liver and diaphragm. The entire right fallopian tube was removed to its origin at the uterine cornu. Description of Procedure: The patient was prepped and draped in usual fashion after general endotracheal anesthesia was instrument anesthesiologist. A speculum was placed and the anterior lip of the cervix grasped with a single-tooth tenaculum allowing placement of an acorn cannula for intraoperative manipulation. Speculum was removed and the bladder was draining approximate 5 mL of clear donnie urine. Attention was turned to the abdomen where a 5 mm incision was made in a vertical fold of the umbilicus lung insertion of a 5 mm optical trocar under direct visualization with only some difficulty secondary to scarring from her previous procedure. Once intra-abdominal, a pneumoperitoneum was created. A site was selected in the left lower quadrant where a 5 mm incision was made through pre- existing scar and a 5 mm optical trocar inserted under direct visualization without difficulty. The blunt probe was utilized to sweep the bowel from the pelvis along with Trendelenburg positioning. A site was selected in the right lower quadrant where a 5 mm incision was made in the transverse plane and again allowing insertion of a fibroid or optical trocar under direct visualization. The left lower quadrant trochars utilized to place a grasper which was used to grasp the fimbriated end of the right fallopian tube. A LigaSure device was placed through the right lower quadrant incision and the fallopian tube removed to its origin at the right cornea. The fallopian tube was then removed through the left trocar with a grasper. Careful inspection demonstrated no further pathology throughout the pelvis. The small bowel, large bowel, and appendix. Entirely normal as did the liver and diaphragm. The instrumentation was removed and the pneumoperitoneum was completely evacuated through the trochars and the t rochars and removed. The skin incisions were repaired with interrupted subcuticular stitches of 4-0 Vicryl followed by half-inch Steri-Strips placed with Mastisol. The 3 incisions were infused with a total of 6 mL of half percent Marcaine without epinephrine equally infused between the 3 incisions. All sponge, instrument, needle counts were correct. Estimated blood loss for the case was less than 5 mL. There were no complications. The patient tolerated the procedure well and proceeded to the recovery room in stable condition.
[2022-12-10] MEDS ORDERED: METOCLOPRAMIDE 5 MG/ML 2 ML VIAL IVP ONE (10:37)
[2022-12-10] MEDS ORDERED: SCOPOLAMINE 1 MG/72 HR PATCH TRANSDERM ONE (11:18)
[2022-12-10 13:44] VITALS: BP 110/69; PULSE 63; RESP 14
== END 2022-12-10 13:44 | disposition home or self-care (01) ==
LOC: OR 06:24 → 4FBP 08:40 → OR 13:44
PROVIDERS: ATTEND Obstetrics & Gynecology
DX: O34.80 Maternal care for other abnormalities of pelvic organs, unspecified trimester (principal); N83.8 Other noninflammatory disorders of ovary, fallopian tube and broad ligament; Z87.891 Personal history of nicotine dependence; Z79.899 Other long term (current) drug therapy
CPT/HCPCS: 81025; 88305; 59151; J2250; J0330; J1100; J2710; J2765; J2405; J3010; J1885; J1170 ×2; J0131; J2704; J2001